=== PATIENT | male | born 1955 | race Caucasian/White ===

== ENCOUNTER 2017-01-19 12:08 | Emergency (ER) | payer MEDICARE, OTHER ==
[~2017-01-19] VITALS: Ht 180.3 cm; Wt 108.0 kg
[2017-01-19 12:30] VITALS: O2SAT 95
[2017-01-19 12:36] VITALS: BP 159/83; PULSE 63; RESP 18; TEMP 98.5; O2SAT 100
[2017-01-19] MEDS ORDERED: BLOOD PRESSURE MED PO (12:46)
[2017-01-19] MEDS ORDERED: NAPR220C22 (12:46)
[2017-01-19] MEDS ORDERED: CHOLESTEROL MED PO (12:46)
[2017-01-19] MEDS ORDERED: TIZA4TAB PO (12:46)
[2017-01-19 12:50] VITALS: BP 149/80; PULSE 87; RESP 20; TEMP 98.1; O2SAT 95
[2017-01-19] MEDS ORDERED: TRAM50TA PO (12:59)
[2017-01-19] MEDS ORDERED: ALBU.5I NEB (13:00)
[2017-01-19] MEDS ORDERED: VENTAER INH ×2 (13:00→15:02)
--- NOTE | 2017-01-19 13:08 | PD ---
HPI Chief Complaint: Chest Pain Time Seen by Provider: 12:52 Travel History International Travel<30 days: No Contact w/Intl Traveler<30days: No Traveled to known affect area: No History of Present Illness HPI 61yo M with PMH of COPD, Hep C, arthritis presents to the ED with c/o right sided chest pain this morning. States it is sharp, worst with movement and nonradiating. States he is always sob with COPD but seems to be coughing more and albuterol did not help. Denies any fever, diaphoresis, n/v, abdominal pain , focal weakness or numbness. PFSH Past Medical History Arthritis: Yes (hands and knees) Asthma: No Blood Disorders: No Anxiety: No Depression: Yes (drug rehab - 14 years ago - pt does have some depression) Cancer: No Cardiovascular Problems: No Chemotherapy: No COPD: Yes Diminished Hearing: No Endocrine: No Gastrointestinal Disorders: Yes (LT.INGUINAL HERNIA) GERD: No Glaucoma: No Genitourinary: Yes Hepatitis: Yes (hepatitis C - states undetectable at this time) Hiatal Hernia: Yes Immune Disorder: No Inguinal Hernia: Yes (LEFT) Kidney Stones: Yes Musculoskeletal: Yes Neurologic: No Psychiatric: No Reproductive: No Respiratory: Yes (COPD) Immunizations Current: No Radiation Therapy: No Sleep Apnea: No Ulcer: Yes (1999 was told he had an ulcer) Tetanus Vaccination: > 5 Years Influenza Vaccination: No Past Surgical History Abdominal Surgery: Yes (UMBILICAL HERNIA 2005, HERNIA X2 IN 04/2008 (LEFT INGUINAL)) AICD: No Appendectomy: Yes Arteriovenous Shunt: No Body Medical Devices: screws in right knee Cardiac Surgery: No Cholecystectomy: Yes Ear Surgery: No Endocrine Surgery: No Eye Surgery: No Genitourinary Surgery: No Insulin Pump: No Joint Replacement: Yes (LEFT KNEE ACLS LIGAMENTS TO KNEE) Neurologic Surgery: No Oral Surgery: No Pacemaker: No Thoracic Surgery: No Other Surgery: Yes Social History Alcohol Use: No Tobacco Use: Yes (1 ppd / pipe) Substance Use: Yes (PAST) Allergies-Medications (Allergen,Severity, Reaction): Coded Allergies: Penicillin (Verified Allergy, Severe, 01/19/17) *MDRO Multi-Drug Resistant Organism (Verified Allergy, Unknown, 01/19/17) MRSA Reported Meds & Prescriptions Reported Meds & Active Scripts Active Reported Albuterol Neb (Albuterol Sulfate) 2.5 Mg/0.5 Ml Neb 2.5 Mg NEB Q4HR NEB PRN Note: The Albuterol Sulfate Inhalation Solution is concentrated and must be diluted. Read complete instructions carefully before using. Ventolin Hfa 18 GM Inh (Albuterol Sulfate) 90 Mcg/Act Aer 2 Puff INH Q4-6H PRN Tramadol (Tramadol HCl) 50 Mg Tab 50 Mg PO DAILY PRN Review of Systems Except as stated in HPI: all other systems reviewed are Neg Physical Exam Narrative GENERAL: 61yo M in mild distress. SKIN: Focused skin assessment warm/dry. HEAD: Atraumatic. Normocephalic. EYES: Pupils equal and round. No scleral icterus. No injection or drainage. ENT: No nasal bleeding or discharge. Mucous membranes pink and moist. NECK: Trachea midline. No JVD. CARDIOVASCULAR: Regular rate and rhythm. No murmur appreciated. CHEST WALL: Mild ttp xyphoid process. RESPIRATORY: Expiratory wheezing bilaterally. GASTROINTESTINAL: Abdomen soft, non-tender, nondistended.No rebound tenderness or guarding. MUSCULOSKELETAL: No obvious deformities. No clubbing. No cyanosis. +Bilateral lower ext edema. NEUROLOGICAL: Awake and alert. No obvious cranial nerve deficits. Motor grossly within normal limits. Normal speech. PSYCHIATRIC: Appropriate mood and affect; insight and judgment normal. Data Data Last Documented VS Vital Signs Date Time Temp Pulse Resp B/P Pulse Ox O2 Delivery O2 Flow Rate FiO2 01/19/17 14:24 81 20 160/82 97 Room Air 01/19/17 13:15 21 01/19/17 12:50 98.1 Orders Complete Blood Count With Diff (01/19/17 13:02) Basic Metabolic Panel (Bmp) (01/19/17 13:02) D-Dimer (01/19/17 13:02) Act Partial Throm Time (Ptt) (01/19/17 13:02) Prothrombin Time / Inr (Pt) (01/19/17 13:02) Troponin I (01/19/17 13:02) Iv Access Insert/Monitor (01/19/17 13:02) Ecg Monitoring (01/19/17 13:02) Oximetry (01/19/17 13:02) Oxygen Administration (01/19/17 13:02) Chest, Single Ap (01/19/17 13:02) Sodium Chloride 0.9% Flush (Ns Flush) (01/19/17 13:15) Methylprednisolone So Succ Inj (Solumedr (01/19/17 13:15) Albuterol-Ipratropium Neb (Duoneb Neb) (01/19/17 13:15) B-Type Natriuretic Peptide (01/19/17 13:08) Lipase (01/19/17 12:30) Prednisone (Deltasone) (01/19/17 13:30) Ketorolac Inj (Toradol Inj) (01/19/17 13:30) Diazepam (Valium) (01/19/17 15:00) Labs Laboratory Tests Test 01/19/17 12:30 White Blood Count 8.1 TH/MM3 Red Blood Count 4.30 MIL/MM3 Hemoglobin 13.7 GM/DL Hematocrit 39.3 % Mean Corpuscular Volume 91.5 FL Mean Corpuscular Hemoglobin 32.0 PG Mean Corpuscular Hemoglobin 35.0 % Concent Red Cell Distribution Width 13.5 % Platelet Count 177 TH/MM3 Mean Platelet Volume 8.4 FL Neutrophils (%) (Auto) 78.2 % Lymphocytes (%) (Auto) 11.3 % Monocytes (%) (Auto) 7.1 % Eosinophils (%) (Auto) 1.6 % Basophils (%) (Auto) 1.8 % Neutrophils # (Auto) 6.4 TH/MM3 Lymphocytes # (Auto) 0.9 TH/MM3 Monocytes # (Auto) 0.6 TH/MM3 Eosinophils # (Auto) 0.1 TH/MM3 Basophils # (Auto) 0.1 TH/MM3 CBC Comment DIFF FINAL Differential Comment Prothrombin Time 10.2 SEC Prothromb Time International 0.9 RATIO Ratio Activated Partial 25.7 SEC Thromboplast Time D-Dimer Quantitative (PE/DVT) 0.29 MG/L FEU Sodium Level 143 MEQ/L Potassium Level 5.0 MEQ/L Chloride Level 111 MEQ/L Carbon Dioxide Level 27.9 MEQ/L Anion Gap 4 MEQ/L Blood Urea Nitrogen 19 MG/DL Creatinine 0.69 MG/DL Estimat Glomerular Filtration 117 ML/MIN Rate Random Glucose 120 MG/DL Calcium Level 8.5 MG/DL Troponin I LESS THAN 0.02 NG/ML B-Type Natriuretic Peptide 33 PG/ML Lipase 139 U/L MDM Medical Decision Making Medical Screen Exam Complete: Yes Emergency Medical Condition: Yes Interpretation(s) EKG: NSR 91bpm. Normal axis. No ST segment elevation or depression. Differential Diagnosis COPD exacerbation vs. Pneumonia vs. PE vs. musculoskeletal pain vs. costochondritis vs. atypical chest pain Narrative Course 61yo M with c/o right sided chest pain. He was pointing more to right chest but on exam is more tender in xyphoid process. Pain is sharp, worst with movement. Does not sound cardiac. Pt had been evaluated in the chest pain center last year 12/08/15 and had negative stress test for ischemia. Pt is wheezing bilaterally but saturating at 97% on RA. Pt given duonebs x3, prednisone 60mg PO. Labs reviewed, no leukocytosis. Troponin negative. BNP 33. D-dimer negative. CXR showed chronic appearing interstitial changes. No acute abnormality. Pt reevaluated at bedside after treatment and toradol and states that his breathing has improved but still with pain. Pain seems very musculoskeletal, may be from chronic coughing, will give valium. Pt is to take ibuprofen for pain at home. Instructed pt to follow up with PMD and cardiology as needed as outpatient. Diagnosis Primary Impression: COPD exacerbation Patient Instructions: General Instructions Departure Forms: Tests/Procedures Additional Instructions: Please follow up with [facility] or your primary care physician in 1- 2 days. Return to the ED if symptoms worsen. Med/Other Pt SpecificInfo: Prescription(s) given Scripts Fluticasone 12 GM Inh (Flovent Hfa 12 GM Inh)110 Mcg/Act Inh2 Puff INH BID #1 INHALER Ref 0 Prov:Cindy Guillory DO 01/19/17 Albuterol 18 GM Inh (Ventolin Hfa 18 GM Inh)90 Mcg/Act Aer2 Puff INH Q4H PRN ( SHORTNESS OF BREATH) #1 INHALER Ref 0 Prov:Cindy Guillory DO 01/19/17 Prednisone 50 Mg Tab50 Mg PO DAILY 5 Days Ref 0 Prov:Cindy Guillory DO 01/19/17 Ibuprofen 600 Mg [id number] Mg PO Q8HR PRN (PAIN) 5 Days Ref 0 Prov:Cindy Guillory DO 01/19/17 Disposition: 01 DISCHARGE HOME Condition: Stable Cindy Guillory DO Jan 19, 2017 13:08
[2017-01-19 13:13] LABS: AUTOMATED NEUTROPHIL # 6.4 TH/MM3 (1.8-7.7); BASOPHIL # 0.1 TH/MM3 (0-0.2); BASOPHIL % 1.8 % (0.0-2.0); EOSINOPHIL # 0.1 TH/MM3 (0-0.4); EOSINOPHIL % 1.6 % (0.0-4.0); HEMATOCRIT 39.3 % (39.0-51.0); HEMO FLAGS DIFF FINAL; LYMPH % 11.3 % (9.0-44.0); LYMPHOCYTE # 0.9 TH/MM3 (1.0-4.8); MEAN CELL VOLUME 91.5 FL (80.0-100.0); MONO % 7.1 % (0.0-8.0); NEUT % 78.2 % (16.0-70.0); PLATELET COUNT 177 TH/MM3 (150-450); RED CELL DISTRIBUTION WIDTH 13.5 % (11.6-17.2); WHITE BLOOD COUNT 8.1 TH/MM3 (4.0-11.0)
[2017-01-19] MEDS: methylPREDNISolone SOD SUCC 125 MG/2 ML VIAL IVP ONE ×2 (13:14→13:15)
[2017-01-19 13:15] VITALS: O2SAT 95
[2017-01-19] MEDS ORDERED: SODIUM CHLORIDE 0.9% FLUSH 10 ML FLUSH IVF PRN (13:15)
[2017-01-19] MEDS: RESP: ALBUTEROL 2.5 MG/IPRATROPIUM 0.5 MG NEB (SCH) INH ×3 (13:15→13:17)
[2017-01-19 13:23] LABS: CHLORIDE 111 MEQ/L (98-107); SODIUM (NA) 143 MEQ/L (136-145)
[2017-01-19 13:26] LABS: ANION GAP 4 MEQ/L (5-15); BICARBONATE 27.9 MEQ/L (21.0-32.0); BLOOD UREA NITROGEN 19 MG/DL (7-18)
[2017-01-19 13:29] LABS: GLOMERULAR FILTRATION RATE 117 ML/MIN (>89)
[2017-01-19] MEDS ORDERED: predniSONE 20 MG TAB PO ONE (13:30)
[2017-01-19] MEDS ORDERED: KETOROLAC TROMETHAMINE 60 MG/2 ML (IM) VIAL IM ONE (13:30)
[2017-01-19 13:32] LABS: APTT (PATIENT) 25.7 SEC (24.3-30.1); INTERNATIONAL NORMALIZED RATIO 0.9 RATIO; PROTHROMBIN TIME - PATIENT 10.2 SEC (9.8-11.6)
--- NOTE | 2017-01-19 13:52 | RADRPT ---
EXAM DATE/TIME: 01/19/2017 13:18 [facility] COMPARISON: CHEST SINGLE AP, December 07, 2015, 23:45. INDICATIONS : Chest pain. MEDICAL HISTORY : Chronic obstructive pulmonary disease. Hepatitis C. smoker SURGICAL HISTORY : None. ENCOUNTER: Initial ACUITY: 1 day PAIN SCORE: 10/10 LOCATION: Bilateral chest FINDINGS: The heart is normal in size. There is some mild chronic appearing interstitial changes. The lungs are otherwise clear. The visualized bony structures are grossly intact. Exam is similar to previous of . CONCLUSION: 1. Chronic appearing interstitial changes. No acute abnormality. Anthony Jaramillo MD on January 19, 2017 at 13:50 Board Certified Radiologist. This report was verified electronically.
[2017-01-19 14:24] VITALS: BP 160/82; PULSE 81; RESP 20; O2SAT 97
[2017-01-19] MEDS ORDERED: DIAZEPAM 5 MG TAB PO ONE (15:00)
[2017-01-19] MEDS ORDERED: IBUP-232 PO (15:02)
[2017-01-19] MEDS ORDERED: FLUTI110I INH (15:02)
[2017-01-19] MEDS ORDERED: PRED50 PO (15:02)
[2017-01-19 15:20] VITALS: BP 160/82
--- NOTE | 2017-01-21 11:15 | EKG ---
Date Performed: 01/19/2017 Time Performed: 12:16:22 PTAGE: 61 years EKG: Sinus rhythm NORMAL ECG INTERPRETATION BASED ON A DEFAULT AGE OF 41 YEARS PREVIOUS TRACING : 12/08/2015 04.08 DOCTOR: Surendra Rubi Interpretating Date/Time 01/21/2017 11:07:17
== END 2017-01-19 15:34 | disposition home or self-care (01) ==
LOC: PHED 12:08
DX: J44.1 Chronic obstructive pulmonary disease with (acute) exacerbation (principal); B19.20 Unspecified viral hepatitis C without hepatic coma; F17.290 Nicotine dependence, other tobacco product, uncomplicated; R06.02 Shortness of breath
CPT/HCPCS: 71010; 80048; 83690; 83880; 84484; 85025; 85379; 85610; 85730; 93005; 94640; 94664; 96372; 99284; J1885; J7512; J2930

== ENCOUNTER 2017-04-17 14:16 | Emergency (ER) | payer OTHER ==
[~2017-04-17] VITALS: Ht 175.3 cm; Wt 107.0 kg
[~2017-04-17 14:16] MED LIST: ALBUAER3 INH; SERO200T PO; TRAM50TA PO; VENTAER INH
[2017-04-17 14:27] VITALS: BP 153/76; PULSE 86; RESP 16; TEMP 98.8; O2SAT 96
[2017-04-17] MEDS ORDERED: IBUP400T20 PO (14:39)
--- NOTE | 2017-04-17 14:47 | PD ---
HPI Chief Complaint: Musculoskeletal Complaint Time Seen by Provider: 14:45 Travel History International Travel<30 days: No Contact w/Intl Traveler<30days: No Traveled to known affect area: No History of Present Illness HPI 61 year old male with history of osteoarthritis presents to the ED for evaluation of Right knee pain and swelling x 4 days. Pain is aching; 4/10. Pt states it is worse in the morning but seems to "loosen up" throughout the day. Reports it being tight. Has remote ACL repair. Denies injury. No fever or chills. No other symptoms to report. PFSH Past Medical History Arthritis: Yes (hands and knees) Asthma: No Blood Disorders: No Anxiety: No Depression: Yes (drug rehab - 14 years ago - pt does have some depression) Cancer: No Cardiovascular Problems: No Chemotherapy: No COPD: Yes Diminished Hearing: No Endocrine: No Gastrointestinal Disorders: Yes (LT.INGUINAL HERNIA) GERD: No Glaucoma: No Genitourinary: Yes Hepatitis: Yes (hepatitis C - states undetectable at this time) Hiatal Hernia: Yes Immune Disorder: No Inguinal Hernia: Yes (LEFT) Implanted Vascular Access Dvce: No Kidney Stones: Yes Musculoskeletal: Yes Neurologic: No Psychiatric: No Reproductive: No Respiratory: Yes (COPD) Immunizations Current: No Radiation Therapy: No Sleep Apnea: No Ulcer: Yes (1999 was told he had an ulcer) Past Surgical History Abdominal Surgery: Yes (UMBILICAL HERNIA 2005, HERNIA X2 IN 04/2008 (LEFT INGUINAL)) AICD: No Appendectomy: Yes Arteriovenous Shunt: No Body Medical Devices: screws in right knee Cardiac Surgery: No Cholecystectomy: Yes Ear Surgery: No Endocrine Surgery: No Eye Surgery: No Genitourinary Surgery: No Insulin Pump: No Joint Replacement: Yes (LEFT KNEE ACLS LIGAMENTS TO KNEE) Neurologic Surgery: No Oral Surgery: No Pacemaker: No Thoracic Surgery: No Other Surgery: Yes Social History Alcohol Use: No Tobacco Use: Yes (1 ppd / pipe) Substance Use: Yes (PAST) Allergies-Medications (Allergen,Severity, Reaction): Coded Allergies: penicillin G (Unverified Allergy, Severe, 04/17/17) *MDRO Multi-Drug Resistant Organism (Verified Allergy, Unknown, 04/17/17) MRSA Reported Meds & Prescriptions Reported Meds & Active Scripts Active Mobic (Meloxicam) 15 Mg Tab 15 Mg PO DAILY PRN Proair Hfa 8.5 GM Inh (Albuterol Sulfate) 90 Mcg/Act Aer 2 Puff INH Q4-6H PRN 108 mcg/actuation Ventolin Hfa 18 GM Inh (Albuterol Sulfate) 90 Mcg/Act Aer 2 Puff INH Q4H PRN Seroquel (Quetiapine Fumarate) 200 Mg Tab 200 Mg PO DAILY Reported Ibuprofen 400 Mg Tab 400 Mg PO AM PRN Review of Systems Except as stated in HPI: all other systems reviewed are Neg Physical Exam Narrative GENERAL: Well nourished male patient ambulatory and in no acute distress SKIN: Warm and dry. HEAD: Normocephalic. EYES: No scleral icterus. No injection or drainage. NECK: Supple, trachea midline. No JVD or lymphadenopathy. CARDIOVASCULAR: Regular rate and rhythm without murmurs, gallops, or rubs. RESPIRATORY: Breath sounds equal bilaterally. No accessory muscle use. GASTROINTESTINAL: Abdomen soft, non-tender, nondistended. MUSCULOSKELETAL: No cyanosis. Moderate anterior edema of the right knee. No erythema. No tenderness over the bony prominences. Pt can fully extend the Right knee. He can flex to 60% and reports tightness as the barrier to full flexion. Distal pulses are palpable. Lachmans test negative. No laxity with valgus or varus stress. BACK: Nontender without obvious deformity. No CVA tenderness. Data Data Last Documented VS Vital Signs Date Time Temp Pulse Resp B/P (MAP) Pulse Ox O2 Delivery O2 Flow Rate FiO2 04/17/17 14:27 98.8 86 16 153/76 (101) 96 Orders Orders Knee, Complete (4vws) (04/17/17 ) Ketorolac Inj (Toradol Inj) (04/17/17 15:00) Shiva Bandage (04/17/17 15:30) Crutches (04/17/17 ) MDM Medical Decision Making Medical Screen Exam Complete: Yes Emergency Medical Condition: Yes Medical Record Reviewed: Yes Differential Diagnosis osteoarthritis vs bursitis vs effusion vs fracture vs ligamentous injury Narrative Course 61 year old male presents to the ED for evaluation of right knee pain x 4 days. Pt appears well. There is anterior edema of the right knee, but no erythema. It is not warm to touch. Pt is able to flex and extend with some moderate limitation due to edema. Last Impressions Knee X-Ray 04/17/17 0000 Signed Impressions: Service Date/Time: Monday, April 17, 2017 14:59 - CONCLUSION: 1. Moderate tricompartmental osteoarthritis. 2. Post ACL reconstruction. 3. Large joint effusion. Anthony Jaramillo MD Discussed the findings with the patient. He is encouraged to seek orthopedic evaluation. I also advised PCP follow up and discussed possible therapeutic drainage of his effusion. He agrees to return with any worsening of symptoms Diagnosis Primary Impression: Arthritis of knee, right Additional Impression: Joint effusion of knee Qualified Codes: M25.461 - Effusion, right knee Referrals: Orthopaedic Surgeon Primary Care Physician Patient Instructions: Arthritis (GEN), General Instructions Additional Instructions: Ice and elevate to reduce pain and swelling Shiva wrap for compression Do not take ibuprofen or other NSAIDS with your prescribed pain med Seek orthopedic evaluation Outpatient MRI may be warranted for further evaluation of your knee pain Return to ED with acute worsening of symptoms Med/Other Pt SpecificInfo: Prescription(s) given Scripts Meloxicam (Mobic) 15 Mg Tab 15 MG PO DAILY Y for PAIN SCALE 1 TO 10, #14 TAB 0 Refills Prov: Rosa Roman 04/17/17 Disposition: 01 DISCHARGE HOME Condition: Stable Rosa Roman Apr 17, 2017 14:47
[2017-04-17] MEDS ORDERED: KETOROLAC TROMETHAMINE 60 MG/2 ML (IM) VIAL IM ONE (15:00)
--- NOTE | 2017-04-17 15:27 | RADRPT ---
EXAM DATE/TIME: 04/17/2017 14:59 [facility] COMPARISON: CHEST SINGLE AP, January 19, 2017, 13:18. INDICATIONS : Right knee pain. MEDICAL HISTORY : None. SURGICAL HISTORY : None. Screws, right knee. ENCOUNTER: Initial ACUITY: 4 - 6 days PAIN SCORE: 5/10 LOCATION: Right knee. FINDINGS: The patient is post ACL reconstruction. There are moderate degenerative changes evident throughout. T here is a large joint effusion. No acute fracture is seen. CONCLUSION: 1. Moderate tricompartmental osteoarthritis. 2. Post ACL reconstruction. 3. Large joint effusion. Anthony Jaramillo MD on April 17, 2017 at 15:25 Board Certified Radiologist. This report was verified electronically.
[2017-04-17] MEDS ORDERED: MOBI15TA PO (15:33)
== END 2017-04-17 15:57 | disposition home or self-care (01) ==
LOC: PHEFT 14:16
DX: M25.461 Effusion, right knee (principal); M25.561 Pain in right knee; F32.9 Major depressive disorder, single episode, unspecified; J44.9 Chronic obstructive pulmonary disease, unspecified; F17.200 Nicotine dependence, unspecified, uncomplicated
CPT/HCPCS: 73564; 96372; 99284; E0113; J1885

== ENCOUNTER → 2017-10-16 | Outpatient (CLI) | payer MEDICARE ==
[~2017-10-16] MED LIST changes: +IBUP1TAB5 PO; +LISI10TA3 PO; +PROZ40CA PO; +QUET1TAB8 PO; -SERO200T PO; -TRAM50TA PO; -VENTAER INH
--- NOTE | 2017-10-17 10:40 | RSPPFT ---
DATE OF PROCEDURE: 10/16/17 COMMENTS: Spirometry shows FVC of 2.1 at 51% of predicted, FEV1 of 0.9 at 30%, FEV1/FVC ratio is decreased. Flow is decreased at FEF 25, FEF 50, FEF 75 and FEF 25-75. There is a good response after bronchodilator treatment. Flow volume loop indicates an obstructive pattern. IMPRESSION: 1. Moderately severe obstructive lung disease. 2. Good response after bronchodilator.
== END ==
LOC: HRSP 10:25
PROVIDERS: ATTEND Family Medicine
DX: J44.1 Chronic obstructive pulmonary disease with (acute) exacerbation (principal)
CPT/HCPCS: 94060

== ENCOUNTER 2018-06-04 07:28 | Inpatient (IN) ==
--- NOTE | 2018-05-24 14:55 | MH ---
cc: Carol Krishnan MD DATE OF ADMISSION: 06/04/2018 DATE OF ADMISSION AND SURGERY: 06/04/2018 ADMITTING DIAGNOSIS: Osteoarthritic degeneration, right knee, now being admitted for right total knee arthroplasty. HISTORY OF PRESENT ILLNESS: This pleasant 63-year-old male is being admitted today for right total knee arthroplasty due to severe painful osteoarthritic degeneration, right knee. On other past history, he has had reconstructive surgery on the right knee including ACL reconstruction. He has had a left total knee as well. Current problems include his asthma and hypertension. He does use an inhaler and takes Lipitor and Lisinopril. REVIEW OF SYSTEMS: Noncontributory. FAMILY HISTORY: Noncontributory. SOCIAL HISTORY: He does smoke, 3 packs a day, but is cutting down, but he does not drink alcohol. ALLERGIES: NO KNOWN ALLERGIES. PHYSICAL EXAMINATION: GENERAL: A 63-year-old male, well-developed, well-nourished, alert and oriented x3, complaining of pain in his right knee. VITAL SIGNS: Blood pressure 132/76, pulse 102 and regular, respirations 18, temperature 97.9, pulse oximetry 96% on room air. HEENT: Eyes PERRLA, EOMI. Ears, nose, mouth clear. LUNGS: Bilateral inspiratory and expiratory wheezing. HEART: Regular rate. ABDOMEN: Soft, positive bowel sounds, nontender. EXTREMITIES: Reveals right knee to have crepitance on range of motion. Neurovascularly intact to his toes. IMPRESSION: Severe painful osteoarthritic degeneration, right knee. PLAN: Admission for right total knee arthroplasty today. He is advised to quit smoking and the plans are going to rehab after the surgical stay in the hospital. Carol Krishnan MD JRR/ct , 02:23 PM , 02:30 PM
[2018-06-04] MEDS ORDERED: Bisacodyl 10 MG Supp RECTAL PRN (08:00)
[2018-06-04] MEDS ORDERED: Post-op Orders (for Pharmacy) OTHER STA (08:00)
--- NOTE | 2018-06-04 08:07 | P.DCO ---
- Diagnosis (1) Status post total right knee replacement using cement Status: Acute (2) Osteoarthritis of right knee Status: Chronic - Physical Therapy Order: Evaluate and treat, Improve ambulation, Strength and gait training - Home Health Nursing Order: Medical education - Case Management Consult Case Management Consult-Home Health: Yes - Certification I have seen patient Randy Corona on 06/04/18. My clinical findings support the need for the requested home health care services because: Limited ability to care for self, High risk of falls I certify that my clinical findings support that this patient is homebound because: Post-op weakness, Unsteady gait/balance (2) Osteoarthritis of right knee Qualifiers: Osteoarthritis type: primary Qualified Code(s): M17.11 - Unilateral primary osteoarthritis, right knee
[2018-06-04] MEDS ORDERED: Metoprolol Tartrate 25 MG Tablet PO ONE (08:15)
[2018-06-04] MEDS ORDERED: Chlorhexidine 4% Topical 120 APPLIC/120 ML Bottle TOPICAL SCH (08:15)
[2018-06-04] MEDS ORDERED: Clindamycin 900 mg/NS Premix 900 MG/50 ML PIGGYBACK IV.SIG SCH (08:15)
[2018-06-04] MEDS ORDERED: Chlorhexidine Gluconate 2% 1 Pack (2 Cloths) TOPICAL ONE (08:15)
[2018-06-04] MEDS ORDERED: Sodium Chlor 0.9% Inj 500 ML IV.CONT ONE (08:15)
[2018-06-04] MEDS ORDERED: TRANEXAMIC ACID IV.SIG SCH (09:00)
[2018-06-04] MEDS ORDERED: Sodium Chlor 0.9% Inj 80 ML, Bupivacaine Liposo PF 1.3% Inj 20 ML, Bupivacaine PF 0.25%... P-ARTICULR ONE ×6 (09:00)
[2018-06-04] MEDS ORDERED: SODIUM CHLOR 0.9% IV.SIG SCH (09:00)
[2018-06-04] MEDS ORDERED: fentaNYL Citrate Inj 100 MCG/2 ML Ampul ONE ×2 (09:31→14:26)
[2018-06-04] MEDS ORDERED: fentaNYL Citrate Inj 100 MCG/2 ML Ampul IV.PUSH SCH (09:45)
[2018-06-04] MEDS ORDERED: Neostigmine Inj 5 MG/5 ML Syringe IV.PUSH ONE (11:15)
[2018-06-04] MEDS ORDERED: Succinylcholine Inj 100 MG/5 ML Syringe IV.PUSH ONE (11:15)
[2018-06-04] MEDS ORDERED: Glycopyrrolate Inj 1 MG/5 ML Syringe IV.PUSH ONE (11:15)
[2018-06-04] MEDS ORDERED: Phenylephrine/NS 1000 MCG/10ML Syringe IV.PUSH ONE (11:15)
[2018-06-04] MEDS ORDERED: Lidocaine PF 1% Inj 5 ML Syringe OTHER ONE (11:15)
[2018-06-04] MEDS ORDERED: Tranexamic Acid Inj 1,000 MG in Sodium Chlor 0.9% Inj 100 ML IV.SIG SCH (12:00)
--- NOTE | 2018-06-04 14:15 | P.BOP ---
- Preoperative Diagnosis (1) Osteoarthritis of right knee - Postoperative Diagnosis (1) Status post total right knee replacement using cement Date of procedure: 06/04/18 Procedure: Right Total Knee Arthroplasty Implants: see implant record Anesthesia: GETA Surgeon: Dale Krishnan MD Health Safety Engineer: Lorena Riley Estimated blood loss (mL): 100 Tourniquet time (min): 50 (300 mmHg) Urine output (mL): 0 (no quigley) Pathology: none sent Condition: stable Disposition: PACU
[2018-06-04] MEDS ORDERED: *morphine SULFATE 10 MG/ML PERIprocedure ONLY ONE (14:22)
--- NOTE | 2018-06-04 14:42 | MP ---
cc: Carol Krishnan MD DATE OF OPERATION: 06/04/2018 PREOPERATIVE DIAGNOSIS: Severe osteoarthritic degeneration, right knee, status post anterior cruciate ligament reconstruction 30 years ago. SURGERY PERFORMED: Right total knee arthroplasty with removal of 2 screws in the proximal tibia using Consensus components, size 6 femur, 4 tibia, 10 standard insert and size 2 patella with 2 batches of antibiotic-impregnated cement. SURGEON: Carol Krishnan MD ESCALATOR CONSTRUCTOR: Lorena Riley APRN ANESTHESIA: General intubation and block. PROCEDURE: After successful induction of anesthesia, the patient is placed on the operating room table in the supine position. The knee is prepped and draped in the usual manner. A tourniquet is inflated at the upper thigh and set to 300 mmHg pressure after exsanguination of the lower extremity. A longitudinal incision is made extending from 3 inches proximal to the superior pole of the patella, across the patella in longitudinal fashion, and down past the insertion of the tibial tubercle into the proximal tibia. The incision is carried down through subcutaneous tissue along the medial aspect of the patella and retinaculum, down through the capsule to expose the knee joint. The patella and patellar tendon are freed up enough to allow the patella to be inverted and retracted off the lateral side of the knee joint. The knee joint is left exposed. Small osteophytes are removed. All soft tissue is removed to allow proper position of the femoral and tibial cutting jig guide. The first femoral jig is then inserted along the distal end of the femur after first measuring to decide whether this is a small, medium, or large component. The notch is then drilled and the tibial cutting guide inserted into the femoral cutting guide, along with the ankle brace to allow for proper measurement of the tibial cutting surface that needed to be resected. Pins are inserted into the tibial cutting jig and femoral cutting jig to hold them in place. An oscillating saw is then used to resect the surface of the tibia. The surface of the tibia is then completely removed using sharp and blunt dissection. The anterior and posterior cuts of the femur are then made as well using an oscillating saw through the cutting guide. All guides are then removed and the varus/valgus angulation cutting guide applied to the femur for proper measurement of the proper amount of valgus. The anterior cutting guide for the femur is then inserted at the anterior femoral cuts made. Next, the first block trial is inserted into the femur to allow for proper condyle drill holes to be made which are then made followed by removal of the bone between the condyles using an oscillating saw as well as the bone removed at the most posterior surface of the condyle. After this, this guide is removed and the chamfer cuts made using the chamfer cutting guide from both anterior and posterior. Next, the femoral trial is then inserted, the tibial surface reflected anterior to expose the tibial surface and a tibial stem guide is inserted after first measuring for a standard, standard plus, large, or large plus surface to be used. After the stem is impacted the trial tibial surface is applied followed by the trial meniscal components. After full range of motion is found with the appropriate length meniscal components varying the patella is prepared by resecting the posterior aspect of the patella using an oscillating saw, inserting a trial. The trial is then removed and the cruciate cutting guide applied using the bur to cut the cruciate cuts. After cruciate cuts are made all trials are removed. The wound is irrigated copiously with antibiotic solution and Water Pik and the actual components inserted into place using the aforementioned components. After the cement has hardened and the components are found to have full range of motion with no instability, the tourniquet is deflated, total tourniquet time being 50 minutes at 300 mmHg pressure. The wound again is irrigated copiously with antibiotic solution, meticulous hemostasis achieved. Two Autovac tubes inserted, followed by closure of the deep fascia with both running and interrupted #1 Vicryl suture, subcutaneous tissue approximated using interrupted 2-0 Vicryl sutures, and skin approximated with chepe. Wet and dry dressing is applied to the wound followed by Xeroform gauze, sterile dressing and knee immobilizer. The patient tolerated the procedure well and left the Operating Room in satisfactory condition. ESTIMATED BLOOD LOSS: 100 mL. COUNTS: Sponge and suture counts were correct. COMPONENTS: The components used were Consensus components, size 6 femur, 4 tibia, 10 standard insert and size 2 patella with 2 batches of antibiotic-impregnated cement. Prior to making the cuts, 2 screws were removed from the proximal tibia by dissecting around them and removing the screws and washers manually with a Mena head screwdriver. Next, the total knee was done. Meticulous hemostasis achieved and 120 mL of mixture of Exparel, normal saline, 0.25% Marcaine plain was injected around the knee joint for extra pain control. Deep fascia approximated with running #2 Quill. Subcutaneous tissue approximated using interrupted running 2-0 and 3-0 Monocryl suture and Prineo dressing and knee immobilizer. No drain utilized. Sponge and suture counts correct. The patient tolerated the procedure well and left the operating room in stable condition. Lorena Riley APRN, was present during the entire procedure to include patient positioning as well as the procedure itself. The medical necessity of a nurse practitioner dental front office assistant in this case was indicated in this case by the complexity of the case itself. Throughout the case, the surgical technologist was working the back table while my surgical services tech RYLEE was directly assisting me. J. MD RILEY Nichole/es , 01:43 PM , 01:51 PM
--- NOTE | 2018-06-04 14:53 | XR ---
EXAM DATE: 06/04/2018 2:51 PM EST AGE/SEX: 63 years / Male INDICATIONS: Post-op right knee. CLINICAL DATA: This is the patient's initial encounter. Patient reports that signs and symptoms have been present for 1 day and indicates a pain score of Nonresponsive. MEDICAL/SURGICAL HISTORY: None. None. COMPARISON: POI, XR KNEE COMPLETE, RIGHT, 10/05/2017. . FINDINGS: The patient is post right knee arthroplasty. Orthopedic hardware is in excellent position. There is n o evidence of complication. CONCLUSION: Orthopedic hardware in excellent position. Electronically signed by: Anthony Jaramillo MD 06/04/2018 2:52 PM EST
[2018-06-04] MEDS ORDERED: Bupivacaine PF 0.5% Inj 30 ML Vial ONE (15:55)
--- NOTE | 2018-06-04 17:26 | P.CONIM ---
History of Present Illness Service: [facility] Consult date: 06/04/18 Reason for Consult: medical management Primary Care Provider: Khang Manning MD Chief Complaint: right knee pain History of Present Illness: This is a 63-year-old male with past medical history of osteoarthritis , hypertension, COPD, asthma COPD, hyperlipidemia who was admitted for right total knee arthroplasty with Dr. Krishnan for osteoarthritic degeneration of the right knee. Patient had a past history of reconstructive surgery on the right knee including ACL reconstruction and left knee surgery. Medicine team was consulted for medical management. Patient seen and examined laying in bed, slightly sleepy however answers to questions appropriately. And drifting back to sleep. Patient complains of right knee pain at 6 out of 10 scale. Stated did not get any pain medication nurse reported that patient just had a nerve block. Patient complains of wheezing with known history of smoking 3 packs/day. Patient stated he went back smoking due to the passing of his . Patient stated he is using an inhaler at home and he brought it with him. Patient denies any use of oxygen at home. Patient denies any drinking alcohol. Patient denies any headache or dizziness, chest pain, abdominal pain, nausea, vomiting, diarrhea or constipation. Patient denies any fever or chills. Review of Systems All other systems reviewed negative except as stated in HPI PMFSH - History History Provided By: Patient - Medical History Medical History: Medical History (Last Reviewed 06/04/18 @ 17:12 by DIANA Guerra) Arthritis COPD (chronic obstructive pulmonary disease) Depression History of drug abuse in remission Hx of hepatitis C Hx of tear of ACL (anterior cruciate ligament) MRSA (methicillin resistant Staphylococcus aureus) infection PVD (peripheral vascular disease) Tooth missing Wears glasses - Surgical History Surgical History: Surgical History (Last Reviewed 06/04/18 @ 17:12 by DIANA Guerra) History of total left knee replacement History of umbilical hernia repair Hx of left inguinal hernia repair Hx of vein stripping - Family History Family History: Family History (Last Updated 06/04/18 @ 17:13 by DIANA Guerra) Sister No problems noted. Sister Family history of breast cancer Father Family history of cancer - Social History I have reviewed the patient's Social History: Yes - Tobacco History Second Hand Smoke Exposure: No Tobacco Use In Past 30 Days: Yes Smoking Status: Current every day smoker Tobacco Type: Cigarettes, Cigars - Alcohol History How Often Do You Have a Drink Containing Alcohol: Never - Substance Use History Substance History: Past History - Substance Use Type Marijuana Type: HEROIN, PILLS, EVERYTHING EXCEPT CRACK; CLEAN 28 YEARS NOW - Travel History Recent Travel in the [place] Within the Last 8 Weeks: No Recent Travel Out of the Country Within the Last 8 Weeks: No Medications and Allergies Active Medications: Active Medications Hydrocodone Bitart/Acetaminophen ([place] 7.5/325) 1 tab PO Q4H PRN PRN Reason: PAIN LESS THAN 5 ON SCALE Hydrocodone Bitart/Acetaminophen ([place] 7.5/325) 2 tab PO Q6H PRN PRN Reason: PAIN SCALE 5 TO 10 Al Hydroxide/Mg Hydroxide (Milk Of Magnesia Liq) 30 ml PO BID PRN PRN Reason: Mild Constipation Albuterol (Ventolin Hfa Inh) 2 puff INH Q4HR NEB PRN PRN Reason: Shortness Of Breath Albuterol (Duoneb Neb (Josseline)) 1 ampul NEB ONCE JOSSELINE Stop: 06/04/18 23:59 Last Admin: 06/04/18 09:59 Dose: 1 ampul Apixaban (Eliquis) 2.5 mg PO BID JOSSELINE Bisacodyl (Dulcolax Supp) 10 mg RECTAL DAILY PRN PRN Reason: SEVERE CONSITIPATION Chlorhexidine Gluconate (Hibiclens 4% Topical) 1 applicatio TOPICAL ONCE JOSSELINE Stop: 06/08/18 08:14 Last Admin: 06/04/18 08:20 Dose: 1 applicatio Fentanyl Citrate (Fentanyl Inj) 75 mcg IV.PUSH ONCE JOSSELINE Stop: 06/04/18 23:59 Last Admin: 06/04/18 09:55 Dose: 75 mcg Lactated Ringer's (Lr 1000 Ml Inj) 1,000 mls @ 80 mls/hr IV.CONT .[id number] JOSSELINE Last Admin: 06/04/18 14:38 Dose: 80 mls/hr Lactated Ringer's (Lr 1000 Ml Inj) 1,000 mls @ 30 mls/hr IV.CONT .Q24H ONE Stop: 06/05/18 08:14 Last Admin: 06/04/18 08:30 Dose: 30 mls/hr Sodium Chloride (Ns Inj) 500 mls @ 30 mls/hr IV.CONT .[id number] ONE Stop: 06/05/18 00:54 Last Admin: 06/04/18 08:48 Dose: Not Given Clindamycin/Sodium Chloride (Cleocin 900 Mg/Ns Premix) 900 mg in 50 mls @ 100 mls/hr IV.SIG [facility] Stop: 06/08/18 08:14 Last Infusion: 06/04/18 11:40 Dose: 10 mls/hr Clindamycin/Sodium Chloride (Cleocin 900 Mg/Ns Premix) 900 mg in 50 mls @ 100 mls/hr IV.SIG Q8H [facility] Stop: 06/05/18 12:29 Lactulose (Lactulose Liq) 30 ml PO DAILY PRN PRN Reason: SEVERE CONSITIPATION Lisinopril (Prinivil) 10 mg PO DAILY [facility] Midazolam HCl (Versed Inj) 2 mg IV.PUSH ONCE [facility] Stop: 06/04/18 23:59 Last Admin: 06/04/18 09:45 Dose: 2 mg Miscellaneous Information ([facility] Information) 0 each OTHER UNSCH PRN PRN Reason: SEE LABEL COMMENTS Stop: 06/05/18 14:12 Morphine Sulfate (Morphine Inj) 2 mg IV.PUSH Q3H PRN PRN Reason: BREAKTHROUGH PAIN Multivitamins/Minerals (Theragran-M) 1 tab PO BID [facility] Stop: 08/03/18 08:59 Ondansetron HCl (Zofran Odt) 4 mg PO Q6H PRN PRN Reason: NAUSEA OR VOMITING Senna/Docusate Sodium (Cassandra-Colace) 1 tab PO BID [facility] Sennosides (Senokot) 17.2 mg PO BID PRN PRN Reason: Moderate Constipation Sodium Chloride (Ns Flush) 2 ml IV.FLUSH BID [facility] Sodium Chloride (Ns Flush) 2 ml IV.FLUSH PRN PRN PRN Reason: FLUSH AFTER USING IV ACCESS Allergies Allergy/AdvReac Type Severity Reaction Status Date / Time penicillin G Allergy Severe Anaphylaxis Verified 06/04/18 08:43 Home Medications Medication Instructions Recorded Confirmed Type albuterol sulfate 2 puff INHALATION Q4-6H PRN 05/24/18 06/04/18 History ibuprofen 400 mg PO DAILY PRN 05/24/18 06/04/18 History lisinopril 10 mg PO DAILY 05/24/18 06/04/18 History Exam Vital signs: Vital Signs 06/04/18 08:05 06/04/18 09:01 06/04/18 10:02 Temperature 98.4 F Pulse Rate 77 75 74 Respiratory Rate 20 20 Blood Pressure 173/93 H Pulse Oximetry 96 96 06/04/18 14:13 06/04/18 14:15 06/04/18 14:30 Temperature 97.6 F Pulse Rate 101 H 90 83 Respiratory Rate 25 H 20 21 Blood Pressure 175/93 H 184/85 H 166/80 H Pulse Oximetry 93 L 92 L 92 L 06/04/18 14:50 Temperature Pulse Rate Respiratory Rate 19 Blood Pressure Pulse Oximetry Intake & Output 06/03/18 06/04/18 06/04/18 18:59 06:59 18:59 Intake Total 1511.17 / 1511.17 Output Total 100 / 100 Balance 1411.17 / 1411.17 Weight 111.7 kg Intake: IV 111.17 / 111.17 Cyklokapron Inj 1,117 MG In NS 111.17 / 111.17 Inj 100 ML @ 200 mls/hr IV.SIG ONCE JOSSELINE Rx#:[id number] Anesthesia Amount 1400 / 1400 Output: Estimated Blood Loss 100 / 100 Other: Weight On Admission 111.7 kg Narrative: GENERAL: Well-developed, well-nourished, male laying in bed in no apparent distress SKIN: Warm and dry. HEAD: Atraumatic. Normocephalic. EYES: Pupils equal and round. No scleral icterus. No injection or drainage. ENT: No nasal bleeding or discharge. Mucous membranes pink and moist. NECK: Trachea midline. No JVD. CARDIOVASCULAR: Regular rate and rhythm. RESPIRATORY: No accessory muscle use. Expiratory wheezes on right lung area on auscultation. On 2 L nasal cannula, O2 sat >90 GASTROINTESTINAL: Abdomen obese soft, non-tender, nondistended. Hepatic and splenic margins not palpable. MUSCULOSKELETAL: Extremities without clubbing, cyanosis, or edema. Right knee wrapped with Shiva wrap, with cooling system, sensation intact NEUROLOGICAL: Awake but sleepy, alert and oriented x3. No obvious cranial nerve deficits. Motor grossly within normal limits. Generalized weakness moving all 4 extremities except right lower leg with limited range of motion. Normal speech. PSYCHIATRIC: Appropriate mood and affect; insight and judgment normal. Results - Labs Labs: Laboratory Results - last 24 hr 11/26/18 08:23 Blood Type AB Positive Blood Type Recheck Required Antibody Screen Negative - Imaging Impressions Knee X-Ray 06/04/18 08:00 CONCLUSION: Orthopedic hardware in excellent position. Assessment and Plan - Assessment (1) COPD (chronic obstructive pulmonary disease) Code(s): J44.9 - Chronic obstructive pulmonary disease, unspecified Status: Acute (2) Asthma Code(s): J45.909 - Unspecified asthma, uncomplicated Status: Acute (3) Hypertension Code(s): I10 - Essential (primary) hypertension Status: Acute (4) Hyperlipidemia Code(s): E78.5 - Hyperlipidemia, unspecified Status: Acute (5) Status post total right knee replacement using cement Code(s): Z96.651 - Presence of right artificial knee joint Status: Acute (6) Osteoarthritis of right knee Code(s): M17.11 - Unilateral primary osteoarthritis, right knee Status: Chronic - Plan This is a 63-year-old male with past medical history of osteoarthritis , hypertension, COPD, asthma COPD, hyperlipidemia who was admitted for right total knee arthroplasty with Dr. Krishnan for osteoarthritic degeneration of the right knee. Osteoarthritis Osteoarthritic degeneration of the right knee Status post right knee arthroplasty today 06/04/[address] Krishnan History of ACL reconstruction and total left knee -Postop care for right knee arthroplasty -Pain pain management with as needed pain medication and bowel regimen -OrthO following -Continue Eliquis for DVT prophylaxis -Physical therapy/rehab per protocol COPD Asthma Tobacco dependence -Expiratory wheezes -Add DuoNeb scheduled and as needed -As needed O2 weaned down to keep sat greater than 90% -Counseling on tobacco cessation -Continue home inhalers -Monitor respiratory status Hypertension, history of Hyperlipidemia, history of -Blood pressure controlled -Continue home dose lisinopril and Lipitor -Monitor blood pressure DVT prophylaxis: Continue on Eliquis Code Status: Full code Discussed Condition With: Patient and nurse Dr. Penaloza Discharge Planning: Plan for nursing rehab after to surgical stay OrthO recommendation (6) Osteoarthritis of right knee Qualifiers: Osteoarthritis type: primary Qualified Code(s): M17.11 - Unilateral primary osteoarthritis, right knee
[2018-06-04] MEDS: Morphine Inj 4 MG/ML Vial IV.PUSH PRN (20:37)
[2018-06-04] MEDS: Multivitamin/Minerals Therapeutic Tablet PO SCH (20:39)
[2018-06-04] MEDS: Senna/Docusate Sodium 8.6/50 MG Tablet PO SCH (20:39)
[2018-06-04] MEDS: Clindamycin 900 mg/NS Premix 900 MG/50 ML PIGGYBACK IV.SIG SCH (21:20)
[2018-06-05] MEDS: Morphine Inj 4 MG/ML Vial IV.PUSH PRN ×5 (01:15→23:52)
[2018-06-05] MEDS: Clindamycin 900 mg/NS Premix 900 MG/50 ML PIGGYBACK IV.SIG SCH ×2 (04:10→12:12)
[2018-06-05 05:09] LABS: Baso % (Auto) 0.3 % (0.0-2.0); Hematocrit 37.8 % (39.0-51.0); Hemoglobin 12.8 gm/dL (13.0-17.0); Lymph # (Auto) 0.9 th/mm3 (1.0-4.8); Lymph % (Auto) 6.3 % (9.0-44.0); Mean Corpuscular Hemoglobin 32.1 pg (27.0-34.0); Mean Corpuscular Volume 94.7 fL (80.0-100.0); Mean Platelet Volume 8.4 fL (7.0-11.0); Mono # (Auto) 1.1 th/mm3 (0.0-0.9); Mono % (Auto) 7.9 % (0.0-8.0); Neut # (Auto) 11.9 th/mm3 (1.8-7.7); Neut % (Auto) 85.5 % (16.0-70.0); Platelet Count 139 th/mm3 (150-450); Red Cell Distribution Width 13.7 % (11.6-17.2); White Blood Count 13.9 th/mm3 (4.0-11.0)
[2018-06-05 05:17] LABS: Anion Gap 5 meq/L (5-15); Blood Urea Nitrogen 19 mg/dL (7-18); Carbon Dioxide 31.5 meq/L (21.0-32.0); Chloride 103 meq/L (98-107); Glomerular Filtration Rate Greater Than 89 mL/min (>89); Glucose,Random 136 mg/dL (74-106); Potassium 4.6 meq/L (3.5-5.1); Sodium 139 meq/L (136-145)
[2018-06-05] MEDS: Lisinopril 10 MG Tablet PO SCH (08:48)
[2018-06-05] MEDS: Multivitamin/Minerals Therapeutic Tablet PO SCH ×2 (08:48→20:04)
[2018-06-05] MEDS: Senna/Docusate Sodium 8.6/50 MG Tablet PO SCH ×2 (08:48→23:56)
--- NOTE | 2018-06-05 09:02 | XR ---
EXAM DATE: 06/05/2018 8:59 AM EST AGE/SEX: 63 years / Male INDICATIONS: Short of breath. CLINICAL DATA: This is the patient's initial encounter. Patient reports that signs and symptoms have been present for 1 day and indicates a pain score of 0/10. MEDICAL/SURGICAL HISTORY: . Chronic obstructive pulmonary disease. Hepatitis C. Smoker None. COMPARISON: POI, XR CHEST PA AND LAT, 05/29/2018. . FINDINGS: The heart is normal in size. There are chronic interstitial changes within the pulmonary parenchyma. These are similar to the previous examination. The visualized bony structures are grossly intact. CONCLUSION: No acute cardiopulmonary findings. Stable compared to prior. Electronically signed by: Anthony Jaramillo MD 06/05/2018 9:01 AM EST
--- NOTE | 2018-06-05 10:58 | P.PNOP ---
Subjective Interval history: Pt painful in knee today. Physical Exam Vital signs: Vital Signs 06/04/18 14:13 06/04/18 14:15 06/04/18 14:30 Temperature 97.6 F Pulse Rate 101 H 90 83 Respiratory Rate 25 H 20 21 Blood Pressure 175/93 H 184/85 H 166/80 H Pulse Oximetry 93 L 92 L 92 L 06/04/18 14:45 06/04/18 14:50 06/04/18 15:00 Temperature Pulse Rate 81 86 Respiratory Rate 20 19 22 Blood Pressure 141/66 H 133/56 L Pulse Oximetry 97 95 06/04/18 15:15 06/04/18 15:30 06/04/18 15:45 Temperature Pulse Rate 81 85 80 Respiratory Rate 21 14 17 Blood Pressure 121/61 117/60 128/68 Pulse Oximetry 89 L 91 L 93 L 06/04/18 16:00 06/04/18 16:15 06/04/18 16:30 Temperature Pulse Rate 81 78 81 Respiratory Rate 17 19 19 Blood Pressure 123/67 121/66 109/55 L Pulse Oximetry 89 L 93 L 94 L 06/04/18 17:00 06/04/18 17:42 06/04/18 18:00 Temperature 97.6 F Pulse Rate 78 79 Respiratory Rate 20 13 16 Blood Pressure 147/73 H 135/74 Pulse Oximetry 93 L 94 L 06/04/18 20:00 06/04/18 20:32 06/05/18 00:00 Temperature 98.1 F 98.3 F Pulse Rate 81 76 81 Respiratory Rate 20 17 18 Blood Pressure 156/71 H 106/56 L Pulse Oximetry 95 91 L 92 L 06/05/18 03:50 06/05/18 04:00 06/05/18 08:00 Temperature 97.7 F 98.1 F Pulse Rate 69 84 76 Respiratory Rate 16 20 16 Blood Pressure 134/63 141/69 H Pulse Oximetry 95 95 06/05/18 08:39 Temperature Pulse Rate 81 Respiratory Rate 18 Blood Pressure Pulse Oximetry 94 L Intake & Output 06/04/18 06/05/18 06/05/18 18:59 06:59 18:59 Intake Total 1511.17 / 1511.17 1770 / 1770 Output Total 100 / 100 1050 / 1050 Balance 1411.17 / 1411.17 720 / 720 Weight 111.7 kg 126.8 kg Intake: IV 111.17 / 111.17 1050 / 1050 LR 1000 mL Inj 1,000 ML @ 80 1000 / 1000 mls/hr IV.CONT .[id number] [facility] Rx# :[id number] Cleocin 900 mg/NS Premix 900 mg 50 / 50 In 50 ml @ 100 mls/hr IV.SIG Q8H [facility] Rx#:[id number] Cyklokapron Inj 1,117 MG In NS 111.17 / 111.17 Inj 100 ML @ 200 mls/hr IV.SIG ONCE [facility] Rx#:[id number] Oral 720 / 720 Anesthesia Amount 1400 / 1400 Output: Urine 1050 / 1050 Estimated Blood Loss 100 / 100 Other: Date of Last Bowel Movement 06/04/18 Weight On Admission 111.7 kg - Constitutional no acute distress Results - Labs CBC & Chem 7: 06/05/18 04:39 06/05/18 04:39 Laboratory Results - last 24 hr 06/05/18 06/05/18 04:39 04:39 WBC 13.9 H RBC 4.00 L Hgb 12.8 L Hct 37.8 L MCV 94.7 MCH 32.1 MCHC 34.0 RDW 13.7 Plt Count 139 L MPV 8.4 Neut % (Auto) 85.5 H Lymph % (Auto) 6.3 L [place] % (Auto) 7.9 Eos % (Auto) 0.0 Baso % (Auto) 0.3 Neut # (Auto) 11.9 H Lymph # (Auto) 0.9 L [place] # (Auto) 1.1 H Eos # (Auto) 0.0 Baso # (Auto) 0.0 WBC Differential . Differential Comment Auto diff final Sodium 139 Potassium 4.6 Chloride 103 Carbon Dioxide 31.5 Anion Gap 5 BUN 19 H Creatinine 0.82 Estimated GFR Greater than 89 Random Glucose 136 H Calcium 8.0 L - Imaging Impressions Knee X-Ray 06/04/18 08:00 CONCLUSION: Orthopedic hardware in excellent position. Chest X-Ray 06/05/18 00:00 CONCLUSION: No acute cardiopulmonary findings. Stable compared to prior. Assessment and Plan - Problem List (1) Status post total right knee replacement using cement Code(s): Z96.651 - Presence of right artificial knee joint Status: Acute (2) Osteoarthritis of right knee Code(s): M17.11 - Unilateral primary osteoarthritis, right knee Status: Chronic Qualifiers: Osteoarthritis type: primary Qualified Code(s): M17.11 - Unilateral primary osteoarthritis, right knee - Attending Attestation Attending Attestation: Pt in bed at present time. Dressing dry and intact. NV intact to toes. No calf tenderness. Plan to cont PT.Will need to be able to manage 30 stairs at home before being able to be released to home. Needs social service eval.
--- NOTE | 2018-06-05 14:48 | P.PNIM ---
Subjective Interval history: Follow up osteoarthritis, hypertension, COPD, asthma COPD, hyperlipidemia. Patient seen and examined lying in bed, c/o of right leg/knee pain, stated due to have pain medication and already informed the nurse. Patient stated wanted to go home and does not want to go to rehab, due to have dependent child at home. Patient denies any SOB, stated breathing better this time after his inhaler. Patient denies any headache or dizziness, denies any chest pain, abdominal pain , nausea or vomiting, however C/o of constipation, did not have any BM since Monday. Discusseed will give stool softener. Nurse denies any acute issues overnight. Physical Exam Vital signs: Vital Signs 06/04/18 14:50 06/04/18 15:00 06/04/18 15:15 Temperature Pulse Rate 86 81 Respiratory Rate 19 22 21 Blood Pressure 133/56 L 121/61 Pulse Oximetry 95 89 L 06/04/18 15:30 06/04/18 15:45 06/04/18 16:00 Temperature Pulse Rate 85 80 81 Respiratory Rate 14 17 17 Blood Pressure 117/60 128/68 123/67 Pulse Oximetry 91 L 93 L 89 L 06/04/18 16:15 06/04/18 16:30 06/04/18 17:00 Temperature Pulse Rate 78 81 78 Respiratory Rate 19 19 20 Blood Pressure 121/66 109/55 L 147/73 H Pulse Oximetry 93 L 94 L 93 L 06/04/18 17:42 06/04/18 18:00 06/04/18 20:00 Temperature 97.6 F 98.1 F Pulse Rate 79 81 Respiratory Rate 13 16 20 Blood Pressure 135/74 156/71 H Pulse Oximetry 94 L 95 06/04/18 20:32 06/05/18 00:00 06/05/18 03:50 Temperature 98.3 F Pulse Rate 76 81 69 Respiratory Rate 17 18 16 Blood Pressure 106/56 L Pulse Oximetry 91 L 92 L 06/05/18 04:00 06/05/18 08:00 06/05/18 08:39 Temperature 97.7 F 98.1 F Pulse Rate 84 76 81 Respiratory Rate 20 16 18 Blood Pressure 134/63 141/69 H Pulse Oximetry 95 95 94 L 06/05/18 12:00 Temperature 97.5 F L Pulse Rate 95 H Respiratory Rate 18 Blood Pressure 132/60 Pulse Oximetry 92 L Intake & Output 06/04/18 06/05/18 06/05/18 18:59 06:59 18:59 Intake Total 1511.17 / 1511.17 1820 / 1820 Output Total 100 / 100 1050 / 1050 Balance 1411.17 / 1411.17 770 / 770 Weight 111.7 kg 126.8 kg Intake: IV 111.17 / 111.17 1100 / 1100 LR 1000 mL Inj 1,000 ML @ 80 1000 / 1000 mls/hr IV.CONT .[id number] [facility] Rx# :[id number] Cleocin 900 mg/NS Premix 900 mg 100 / 100 In 50 ml @ 100 mls/hr IV.SIG Q8H [facility] Rx#:[id number] Cyklokapron Inj 1,117 MG In NS 111.17 / 111.17 Inj 100 ML @ 200 mls/hr IV.SIG ONCE [facility] Rx#:[id number] Oral 720 / 720 Anesthesia Amount 1400 / 1400 Output: Urine 1050 / 1050 Estimated Blood Loss 100 / 100 Other: Date of Last Bowel Movement 06/04/18 Weight On Admission 111.7 kg Narrative: GENERAL: Well-developed, well-nourished, male laying in bed in no apparent distress SKIN: Warm and dry. HEAD: Atraumatic. Normocephalic. EYES: Pupils equal and round. No scleral icterus. No injection or drainage. ENT: No nasal bleeding or discharge. Mucous membranes pink and moist. NECK: Trachea midline. No JVD. CARDIOVASCULAR: Regular rate and rhythm. RESPIRATORY: No accessory muscle use. Expiratory wheezes on right lung area on auscultation. On 2 L nasal cannula, O2 sat >90 GASTROINTESTINAL: Abdomen obese soft, non-tender, nondistended. Hepatic and splenic margins not palpable. MUSCULOSKELETAL: Extremities without clubbing, cyanosis, or edema. Right knee wrapped with Shiva wrap, with cooling system, sensation intact NEUROLOGICAL: Awake but sleepy, alert and oriented x3. No obvious cranial nerve deficits. Motor grossly within normal limits. Generalized weakness moving all 4 extremities except right lower leg with limited range of motion. Normal speech. PSYCHIATRIC: Appropriate mood and affect; insight and judgment normal. Results - Labs CBC & Chem 7: 06/05/18 04:39 06/05/18 04:39 Laboratory Results - last 24 hr 06/05/18 06/05/18 04:39 04:39 WBC 13.9 H RBC 4.00 L Hgb 12.8 L Hct 37.8 L MCV 94.7 MCH 32.1 MCHC 34.0 RDW 13.7 Plt Count 139 L MPV 8.4 Neut % (Auto) 85.5 H Lymph % (Auto) 6.3 L [place] % (Auto) 7.9 Eos % (Auto) 0.0 Baso % (Auto) 0.3 Neut # (Auto) 11.9 H Lymph # (Auto) 0.9 L [place] # (Auto) 1.1 H Eos # (Auto) 0.0 Baso # (Auto) 0.0 WBC Differential . Differential Comment Auto diff final Sodium 139 Potassium 4.6 Chloride 103 Carbon Dioxide 31.5 Anion Gap 5 BUN 19 H Creatinine 0.82 Estimated GFR Greater than 89 Random Glucose 136 H Calcium 8.0 L - Imaging Impressions Knee X-Ray 06/04/18 08:00 CONCLUSION: Orthopedic hardware in excellent position. Chest X-Ray 06/05/18 00:00 CONCLUSION: No acute cardiopulmonary findings. Stable compared to prior. Assessment and Plan - Assessment (1) COPD (chronic obstructive pulmonary disease) Code(s): J44.9 - Chronic obstructive pulmonary disease, unspecified Status: Acute (2) Asthma Code(s): J45.909 - Unspecified asthma, uncomplicated Status: Acute (3) Hypertension Code(s): I10 - Essential (primary) hypertension Status: Acute (4) Hyperlipidemia Code(s): E78.5 - Hyperlipidemia, unspecified Status: Acute (5) Status post total right knee replacement using cement Code(s): Z96.651 - Presence of right artificial knee joint Status: Acute (6) Osteoarthritis of right knee Code(s): M17.11 - Unilateral primary osteoarthritis, right knee Status: Chronic - Plan This is a 63-year-old male with past medical history of osteoarthritis , hypertension, COPD, asthma COPD, hyperlipidemia who was admitted for right total knee arthroplasty with Dr. Krishnan for osteoarthritic degeneration of the right knee. Osteoarthritis Osteoarthritic degeneration of the right knee Status post right knee arthroplasty today 06/04/[address] Krishnan History of ACL reconstruction and total left knee -Postop care for right knee arthroplasty -Pain pain management with as needed pain medication and bowel regimen -OrthO following -Continue Eliquis for DVT prophylaxis -Physical therapy/rehab per protocol slight Leukocytosis likely related to post op knee arthroplasty -CXray negative -no fever or chills -monitor CBC, recheck in am COPD Asthma Tobacco dependence -Expiratory wheezes -Add DuoNeb scheduled and as needed -As needed O2 weaned down to keep sat greater than 90% -Counseling on tobacco cessation -Continue home inhalers -Monitor respiratory status Hypertension, history of Hyperlipidemia, history of -Blood pressure controlled -Continue home dose lisinopril and Lipitor -Monitor blood pressure DVT prophylaxis: Continue on Eliquis Code Status: full code Discussed Condition With: patient and nurse Discharge Planning: Patient refused nursing rehab at this time due to dependent child at home (6) Osteoarthritis of right knee Qualifiers: Osteoarthritis type: primary Qualified Code(s): M17.11 - Unilateral primary osteoarthritis, right knee
[2018-06-06 07:08] LABS: Baso % (Auto) 0.3 % (0.0-2.0); Eos % (Auto) 0.4 % (0.0-4.0); Mean Corpuscular HGB Conc 34.2 % (32.0-36.0); Mean Corpuscular Hemoglobin 32.4 pg (27.0-34.0); Mean Platelet Volume 9.1 fL (7.0-11.0); Mono % (Auto) 8.5 % (0.0-8.0); Neut % (Auto) 82.8 % (16.0-70.0); Platelet Count 110 th/mm3 (150-450); Red Blood Count 3.69 mil/mm3 (4.50-5.90); Red Cell Distribution Width 13.9 % (11.6-17.2)
[2018-06-06] MEDS: Lisinopril 10 MG Tablet PO SCH ×2 (08:32→09:15)
[2018-06-06] MEDS: Senna/Docusate Sodium 8.6/50 MG Tablet PO SCH ×2 (08:32→21:30)
[2018-06-06] MEDS: Multivitamin/Minerals Therapeutic Tablet PO SCH ×3 (08:32→21:30)
[2018-06-06] MEDS: Morphine Inj 4 MG/ML Vial IV.PUSH PRN ×3 (11:44→23:00)
--- NOTE | 2018-06-06 11:46 | P.PNOP ---
Subjective Interval history: Pt comfortable and anxious to get home. Physical Exam Vital signs: Vital Signs 06/05/18 12:00 06/05/18 16:00 06/05/18 16:08 Temperature 97.5 F L 97.8 F Pulse Rate 95 H 86 78 Respiratory Rate 18 18 20 Blood Pressure 132/60 130/60 Pulse Oximetry 92 L 96 06/05/18 19:40 06/05/18 21:20 06/06/18 00:31 Temperature 98.2 F 99.5 F Pulse Rate 90 90 100 H Respiratory Rate 22 22 20 Blood Pressure 142/64 H 136/63 Pulse Oximetry 93 L 94 L 92 L 06/06/18 03:37 06/06/18 04:25 06/06/18 08:00 Temperature 100.8 F H 97.9 F Pulse Rate 98 H 95 H 89 Respiratory Rate 21 18 18 Blood Pressure 127/59 L 126/59 L Pulse Oximetry 95 93 L 91 L 06/06/18 08:34 06/06/18 11:38 Temperature 97.9 F Pulse Rate 97 H 91 H Respiratory Rate 19 20 Blood Pressure 126/58 L Pulse Oximetry 95 92 L Intake & Output 06/05/18 06/06/18 06/06/18 18:59 06:59 18:59 Intake Total 800 / 800 1530 / 1530 Output Total 1000 / 1000 600 / 600 Balance -200 / -200 930 / 930 Weight 115.1 kg Intake: IV 1050 / 1050 Oral 800 / 800 480 / 480 Output: Urine 1000 / 1000 600 / 600 Other: Date of Last Bowel Movement 06/03/18 - Constitutional no acute distress Results - Labs CBC & Chem 7: 06/06/18 05:11 06/05/18 04:39 Laboratory Results - last 24 hr 06/06/18 05:11 WBC 12.0 H RBC 3.69 L Hgb 12.0 L Hct 35.0 L MCV 95.0 MCH 32.4 MCHC 34.2 RDW 13.9 Plt Count 110 L MPV 9.1 Neut % (Auto) 82.8 H Lymph % (Auto) 8.0 L [place] % (Auto) 8.5 H Eos % (Auto) 0.4 Baso % (Auto) 0.3 Neut # (Auto) 10.0 H Lymph # (Auto) 1.0 [place] # (Auto) 1.0 H Eos # (Auto) 0.0 Baso # (Auto) 0.0 WBC Differential . Differential Comment Auto diff final Assessment and Plan - Problem List (1) Status post total right knee replacement using cement Code(s): Z96.651 - Presence of right artificial knee joint Status: Acute (2) Osteoarthritis of right knee Code(s): M17.11 - Unilateral primary osteoarthritis, right knee Status: Chronic Qualifiers: Osteoarthritis type: primary Qualified Code(s): M17.11 - Unilateral primary osteoarthritis, right knee - Attending Attestation Attending Attestation: Sitting up in chair at present time. Wound clean and dry. O2 sat dropped to 78% on 3 liters during PT. Plan for medical management and possible pulmonology consult. Cont inpatient care until stable with lungs.
--- NOTE | 2018-06-06 12:52 | P.PN ---
Subjective Interval history: Follow-up visit for osteoarthritis s/p right knee arthroplasty. COPD and asthma with shortness of breath. Nurse reports patient with desaturation with activity. Patient is seen and examined sitting up in chair and appears to be in no acute distress. Complaints of shortness of breath as well as chronic cough. States he is a daily smoker, did quit for a while however is back to smoking upwards of 2 packs of cigarettes daily. He denies any increase in sputum, endorses chills, low-grade temp noted overnight of 100.8. Patient denies any nausea, vomiting, chest pain. Physical Exam Vital signs: Vital Signs 06/05/18 16:00 06/05/18 16:08 06/05/18 19:40 Temperature 97.8 F 98.2 F Pulse Rate 86 78 90 Respiratory Rate 18 20 22 Blood Pressure 130/60 142/64 H Pulse Oximetry 96 93 L 06/05/18 21:20 06/06/18 00:31 06/06/18 03:37 Temperature 99.5 F Pulse Rate 90 100 H 98 H Respiratory Rate 22 20 21 Blood Pressure 136/63 Pulse Oximetry 94 L 92 L 95 06/06/18 04:25 06/06/18 08:00 06/06/18 08:34 Temperature 100.8 F H 97.9 F Pulse Rate 95 H 89 97 H Respiratory Rate 18 18 19 Blood Pressure 127/59 L 126/59 L Pulse Oximetry 93 L 91 L 95 06/06/18 11:38 Temperature 97.9 F Pulse Rate 91 H Respiratory Rate 20 Blood Pressure 126/58 L Pulse Oximetry 92 L Intake & Output 06/05/18 06/06/18 06/06/18 18:59 06:59 18:59 Intake Total 800 / 800 1530 / 1530 1000 / 1000 Output Total 1000 / 1000 600 / 600 Balance -200 / -200 930 / 930 1000 / 1000 Weight 115.1 kg Intake: IV 1050 / 1050 1000 / 1000 LR 1000 mL Inj 1,000 ML @ 80 1000 / 1000 mls/hr IV.CONT .[id number] [facility] Rx# :[id number] Oral 800 / 800 480 / 480 Output: Urine 1000 / 1000 600 / 600 Other: Date of Last Bowel Movement 06/03/18 Narrative: GENERAL: Well-developed, obese, male sitting up in no acute distress. SKIN: Warm and dry. HEAD: Atraumatic. Normocephalic. EYES: Pupils equal and round. No scleral icterus. No injection or drainage. ENT: No nasal bleeding or discharge. Mucous membranes pink and moist. NECK: Trachea midline. No JVD. CARDIOVASCULAR: Regular rate and rhythm. RESPIRATORY: No accessory muscle use. Upper anterior and posterior expiratory wheezes, bases of lungs without rhonchi or crackles. GASTROINTESTINAL: Abdomen obese soft, non-tender, nondistended. +BS MUSCULOSKELETAL: Extremities without clubbing or cyanosis. Right knee surgical incision well approximated with noted edema to the knee as well as leg. NEUROLOGICAL: Awake, alert and oriented x3. No obvious cranial nerve deficits. Motor grossly within normal limits. Normal speech. PSYCHIATRIC: Appropriate mood and affect; insight and judgment normal. Results - Labs CBC & Chem 7: 06/06/18 05:11 06/05/18 04:39 Laboratory Results - last 24 hr 06/06/18 05:11 WBC 12.0 H RBC 3.69 L Hgb 12.0 L Hct 35.0 L MCV 95.0 MCH 32.4 MCHC 34.2 RDW 13.9 Plt Count 110 L MPV 9.1 Neut % (Auto) 82.8 H Lymph % (Auto) 8.0 L [place] % (Auto) 8.5 H Eos % (Auto) 0.4 Baso % (Auto) 0.3 Neut # (Auto) 10.0 H Lymph # (Auto) 1.0 [place] # (Auto) 1.0 H Eos # (Auto) 0.0 Baso # (Auto) 0.0 WBC Differential . Differential Comment Auto diff final Assessment and Plan - Assessment (1) COPD (chronic obstructive pulmonary disease) Code(s): J44.9 - Chronic obstructive pulmonary disease, unspecified Status: Acute (2) Asthma Code(s): J45.909 - Unspecified asthma, uncomplicated Status: Acute (3) Hypertension Code(s): I10 - Essential (primary) hypertension Status: Acute (4) Hyperlipidemia Code(s): E78.5 - Hyperlipidemia, unspecified Status: Acute (5) Status post total right knee replacement using cement Code(s): Z96.651 - Presence of right artificial knee joint Status: Acute (6) Osteoarthritis of right knee Code(s): M17.11 - Unilateral primary osteoarthritis, right knee Status: Chronic - Plan This is a 63-year-old male with past medical history of osteoarthritis , hypertension, COPD, asthma COPD, hyperlipidemia who was admitted for right total knee arthroplasty with Dr. Krishnan for osteoarthritic degeneration of the right knee. Osteoarthritic degeneration of the right knee Status post right knee arthroplasty today 06/04/[address] Krishnan History of ACL reconstruction and total left knee -Postop care for right knee arthroplasty -Pain pain management with as needed pain medication and bowel regimen -OrthO following -Continue Eliquis for DVT prophylaxis -Physical therapy/rehab per protocol slight Leukocytosis likely related to post op knee arthroplasty -CXray negative 06/05 -WBC improved this morning, Tmax 100.8 -Repeat chest x-ray with concerns for pneumonia COPD Asthma Tobacco dependence -Ongoing wheezing despite scheduled neb treatments -Initiate Symbicort for COPD maintenance -Nasal cannula to keep sat greater than 90% -Counseling on tobacco cessation, continue patch -Pulmonary consult if needed -Monitor respiratory status Right LL PNA, healthcare associated - Low grade temp with SOB - Chest x-ray today with right basilar infiltrate concerning for PNA - Start IV Levaquin, plan to transition to p.o. as clinically improving Hypertension, history of Hyperlipidemia, history of -Blood pressure controlled -Continue home dose lisinopril and Lipitor -Monitor blood pressure DVT prophylaxis: Continue on Eliquis Discussed Condition With: Patient and RN (6) Osteoarthritis of right knee Qualifiers: Osteoarthritis type: primary Qualified Code(s): M17.11 - Unilateral primary osteoarthritis, right knee
--- NOTE | 2018-06-06 15:15 | XR ---
EXAM DATE: 06/06/2018 3:10 PM EST AGE/SEX: 63 years / Male INDICATIONS: . Short of breath. CLINICAL DATA: This is the patient's initial encounter. Patient reports that signs and symptoms have been present for 3 days and indicates a pain score of 0/10. MEDICAL/SURGICAL HISTORY: Chronic obstructive pulmonary disease. Hepatitis C. smoker Cholecys tectomy. COMPARISON: [facility] [place], CHEST 1V SINGLE AP, 06/05/2018. . FINDINGS: The examination demonstrates a focal area of consolidation/infiltrate in the right lung base. This is stable compared to previous dated 06/05/2018. This would be concerning for pneumonia. The left lung is clear. The heart is mildly enlarged. The visualized bony structures demonstrate degenerative bardales es in the spine but are otherwise intact. CONCLUSION: Right basilar infiltrate concerning for pneumonia. Electronically signed by: Anthony Jaramillo MD 06/06/2018 3:14 PM EST
[2018-06-06] MEDS: Budesonide-Formoterol 160/4.5 MCG 6 GM Inhaler INH SCH (21:34)
[2018-06-07] MEDS ORDERED: Acetaminophen 325 MG Tablet PO ONE (00:32)
[2018-06-07 05:31] LABS: Baso # (Auto) 0.1 th/mm3 (0.0-0.2); Baso % (Auto) 0.5 % (0.0-2.0); Eos # (Auto) 0.2 th/mm3 (0.0-0.4); Eos % (Auto) 1.5 % (0.0-4.0); Hematocrit 33.6 % (39.0-51.0); Hemoglobin 11.3 gm/dL (13.0-17.0); Lymph # (Auto) 0.9 th/mm3 (1.0-4.8); Lymph % (Auto) 9.1 % (9.0-44.0); Mean Corpuscular HGB Conc 33.7 % (32.0-36.0); Mean Corpuscular Hemoglobin 32.6 pg (27.0-34.0); Mean Corpuscular Volume 96.6 fL (80.0-100.0); Mono # (Auto) 0.8 th/mm3 (0.0-0.9); Mono % (Auto) 7.9 % (0.0-8.0); Neut # (Auto) 8.4 th/mm3 (1.8-7.7); Platelet Count 113 th/mm3 (150-450); Red Blood Count 3.48 mil/mm3 (4.50-5.90); Red Cell Distribution Width 13.8 % (11.6-17.2); White Blood Count 10.4 th/mm3 (4.0-11.0)
--- NOTE | 2018-06-07 09:41 | P.PN ---
Subjective Interval history: Follow-up visit for right knee arthroplasty, SOB/cough. This morning he reports feeling better, ongoing dry cough with clear sputum, denies any shortness of breath, nausea, vomiting, diarrhea or chest pain. Patient reports little to no sleep overnight due to sweats. He is concerned over how long he will be here in the hospital as he is eager to get back home and take care of his handicap son. We discussed the importance of rehab once discharged. Physical Exam Vital signs: Vital Signs 06/06/18 11:38 06/06/18 15:52 06/06/18 20:00 Temperature 97.9 F 98.9 F Pulse Rate 91 H 94 H 109 H Respiratory Rate 20 17 19 Blood Pressure 126/58 L 101/53 L Pulse Oximetry 92 L 93 L 06/06/18 21:06 06/07/18 00:00 06/07/18 03:22 Temperature 101.4 F H Pulse Rate 76 118 H 90 Respiratory Rate 22 18 19 Blood Pressure 118/58 L Pulse Oximetry 98 93 L 06/07/18 04:00 06/07/18 08:25 06/07/18 08:45 Temperature 98.6 F 97.8 F Pulse Rate 94 H 88 89 Respiratory Rate 18 18 20 Blood Pressure 117/59 L 123/69 Pulse Oximetry 93 L 95 99 Intake & Output 06/06/18 06/07/18 06/07/18 18:59 06:59 18:59 Intake Total 1000 / 1000 200 / 200 Output Total 250 / 250 700 / 700 Balance 1000 / 1000 -50 / -50 -700 / -700 Weight 115.8 kg Intake: IV 1000 / 1000 200 / 200 LR 1000 mL Inj 1,000 ML @ 80 1000 / 1000 mls/hr IV.CONT .[id number] [facility] Rx# :[id number] Cleocin 900 mg/NS Premix 900 mg 50 / 50 In 50 ml @ 100 mls/hr IV.SIG [employer] [facility] Rx#:[id number] Levaquin 750 mg Premix Inj 150 150 / 150 ML @ 100 mls/hr IV.SIG Q24H [facility] Rx#:[id number] Output: Urine 250 / 250 700 / 700 Other: # Incontinent Voids 1 Date of Last Bowel Movement 06/03/18 Narrative: GENERAL: Well-developed, obese, male sitting up in no acute distress. SKIN: Warm and dry. HEAD: Atraumatic. Normocephalic. EYES: Pupils equal and round. No scleral icterus. No injection or drainage. ENT: No nasal bleeding or discharge. Mucous membranes pink and moist. NECK: Trachea midline. CARDIOVASCULAR: Regular rate and rhythm. RESPIRATORY: No accessory muscle use. Posterior distal expiratory wheezing, no rhonchi or crackles. GASTROINTESTINAL: Abdomen obese soft, non-tender, nondistended. +BS MUSCULOSKELETAL: Extremities without clubbing or cyanosis. Right knee surgical incision well approximated with noted edema to the knee as well as leg. NEUROLOGICAL: Awake, alert and oriented x3. No obvious cranial nerve deficits. Motor grossly within normal limits. Normal speech. PSYCHIATRIC: Appropriate mood and affect; insight and judgment normal. Results - Labs CBC & Chem 7: 06/07/18 04:51 06/05/18 04:39 Laboratory Results - last 24 hr 06/07/18 04:51 WBC 10.4 RBC 3.48 L Hgb 11.3 L Hct 33.6 L MCV 96.6 MCH 32.6 MCHC 33.7 RDW 13.8 Plt Count 113 L MPV 9.0 Neut % (Auto) 81.0 H Lymph % (Auto) 9.1 [place] % (Auto) 7.9 Eos % (Auto) 1.5 Baso % (Auto) 0.5 Neut # (Auto) 8.4 H Lymph # (Auto) 0.9 L [place] # (Auto) 0.8 Eos # (Auto) 0.2 Baso # (Auto) 0.1 WBC Differential . Differential Comment Auto diff final - Imaging Impressions Chest X-Ray 06/06/18 00:00 CONCLUSION: Right basilar infiltrate concerning for pneumonia. Assessment and Plan - Assessment (1) COPD (chronic obstructive pulmonary disease) Code(s): J44.9 - Chronic obstructive pulmonary disease, unspecified Status: Acute (2) Asthma Code(s): J45.909 - Unspecified asthma, uncomplicated Status: Acute (3) Hypertension Code(s): I10 - Essential (primary) hypertension Status: Acute (4) Hyperlipidemia Code(s): E78.5 - Hyperlipidemia, unspecified Status: Acute (5) Status post total right knee replacement using cement Code(s): Z96.651 - Presence of right artificial knee joint Status: Acute (6) Osteoarthritis of right knee Code(s): M17.11 - Unilateral primary osteoarthritis, right knee Status: Chronic - Plan This is a 63-year-old male with past medical history of osteoarthritis , hypertension, COPD, asthma COPD, hyperlipidemia who was admitted for right total knee arthroplasty with Dr. Krishnan for osteoarthritic degeneration of the right knee. Osteoarthritic degeneration of the right knee Status post right knee arthroplasty today 06/04/[address] Krishnan History of ACL reconstruction and total left knee -Postop care for right knee arthroplasty -Pain pain management with as needed pain medication and bowel regimen -OrthO following -Continue Eliquis for DVT prophylaxis -Physical therapy/rehab per protocol COPD Asthma Tobacco dependence -Ongoing wheezing despite scheduled neb treatments -Continue Symbicort for COPD maintenance -Nasal cannula to keep sat greater than 90% -Counseling on tobacco cessation, continue patch -Pulmonary consulted, appreciate assistance. -Stated on Solu-Medrol 40 mg every 8 hours -Monitor respiratory status Right LL PNA, healthcare associated -Leukocytosis resolved, T-max overnight 101.4 - Chest x-ray with right basilar infiltrate concerning for PNA - Continue IV Levaquin - Pulmonary following, appreciate assistance. Hypertension, history of Hyperlipidemia, history of -Blood pressure controlled -Continue home dose lisinopril and Lipitor -Monitor blood pressure DVT prophylaxis: Continue on Eliquis Discussed Condition With: Patient, RN and (6) Osteoarthritis of right knee Qualifiers: Osteoarthritis type: primary Qualified Code(s): M17.11 - Unilateral primary osteoarthritis, right knee
[2018-06-07] MEDS: Lisinopril 10 MG Tablet PO SCH (10:02)
[2018-06-07] MEDS: Senna/Docusate Sodium 8.6/50 MG Tablet PO SCH ×2 (10:02→20:07)
[2018-06-07] MEDS: Multivitamin/Minerals Therapeutic Tablet PO SCH ×2 (10:03→20:07)
[2018-06-07] MEDS: Budesonide-Formoterol 160/4.5 MCG 6 GM Inhaler INH SCH ×2 (10:04→20:08)
--- NOTE | 2018-06-07 10:59 | P.PNOP ---
Subjective Interval history: Pt more comfortable today. Physical Exam Vital signs: Vital Signs 06/06/18 11:38 06/06/18 15:52 06/06/18 20:00 Temperature 97.9 F 98.9 F Pulse Rate 91 H 94 H 109 H Respiratory Rate 20 17 19 Blood Pressure 126/58 L 101/53 L Pulse Oximetry 92 L 93 L 06/06/18 21:06 06/07/18 00:00 06/07/18 03:22 Temperature 101.4 F H Pulse Rate 76 118 H 90 Respiratory Rate 22 18 19 Blood Pressure 118/58 L Pulse Oximetry 98 93 L 06/07/18 04:00 06/07/18 08:25 06/07/18 08:45 Temperature 98.6 F 97.8 F Pulse Rate 94 H 88 89 Respiratory Rate 18 18 20 Blood Pressure 117/59 L 123/69 Pulse Oximetry 93 L 95 99 Intake & Output 06/06/18 06/07/18 06/07/18 18:59 06:59 18:59 Intake Total 1000 / 1000 200 / 200 Output Total 250 / 250 700 / 700 Balance 1000 / 1000 -50 / -50 -700 / -700 Weight 115.8 kg Intake: IV 1000 / 1000 200 / 200 LR 1000 mL Inj 1,000 ML @ 80 1000 / 1000 mls/hr IV.CONT .[id number] [facility] Rx# :[id number] Cleocin 900 mg/NS Premix 900 mg 50 / 50 In 50 ml @ 100 mls/hr IV.SIG DBA [facility] Rx#:[id number] Levaquin 750 mg Premix Inj 150 150 / 150 ML @ 100 mls/hr IV.SIG Q24H [facility] Rx#:[id number] Output: Urine 250 / 250 700 / 700 Other: # Incontinent Voids 1 Date of Last Bowel Movement 06/03/18 - Constitutional no acute distress Results - Labs CBC & Chem 7: 06/07/18 04:51 06/05/18 04:39 Laboratory Results - last 24 hr 06/07/18 04:51 WBC 10.4 RBC 3.48 L Hgb 11.3 L Hct 33.6 L MCV 96.6 MCH 32.6 MCHC 33.7 RDW 13.8 Plt Count 113 L MPV 9.0 Neut % (Auto) 81.0 H Lymph % (Auto) 9.1 [place] % (Auto) 7.9 Eos % (Auto) 1.5 Baso % (Auto) 0.5 Neut # (Auto) 8.4 H Lymph # (Auto) 0.9 L [place] # (Auto) 0.8 Eos # (Auto) 0.2 Baso # (Auto) 0.1 WBC Differential . Differential Comment Auto diff final - Imaging Impressions Chest X-Ray 06/06/18 00:00 CONCLUSION: Right basilar infiltrate concerning for pneumonia. Assessment and Plan - Problem List (1) Status post total right knee replacement using cement Code(s): Z96.651 - Presence of right artificial knee joint Status: Acute (2) Osteoarthritis of right knee Code(s): M17.11 - Unilateral primary osteoarthritis, right knee Status: Chronic Qualifiers: Osteoarthritis type: primary Qualified Code(s): M17.11 - Unilateral primary osteoarthritis, right knee - Assessment and Plan Pt now has pneumonia. Being treated by medical with levaquin IV. NV intact to toes. Amblulating with walker but with difficulty. No calf tenderness. Plan pulmonary consult and continued PT before discharge when medically stable.
--- NOTE | 2018-06-07 14:09 | MB ---
cc: Shadi Cobb MD DATE: 06/07/2018 REASON FOR CONSULTATION: Pneumonia and COPD. HISTORY OF PRESENT ILLNESS: The patient is a 63-year-old male with a past medical history of osteoarthritis, hypertension, COPD, hyperlipidemia, who was admitted on 06/04/2018 and underwent a right knee replacement for osteoarthritis. A chest x-ray was obtained on 06/05/2018, which showed no acute cardiopulmonary findings; however, a repeat chest x-ray obtained yesterday showed a right basilar infiltrate concerning for pneumonia. He had a temperature of 101.4 at midnight and the patient was started on antibiotics per primary team. Pulmonary Medicine was consulted for COPD and pneumonia. The patient remains an active smoker and has a 45-year pack history of smoking. He reports a productive cough with clear phlegm, wheezing and shortness of breath when climbing up the stairs. He denies any prior history of intubation for his COPD. He was treated for pneumonia on several occasions in the past. The patient denies any nausea, vomiting or abdominal pain. PAST MEDICAL HISTORY: Significant for COPD, osteoarthritis, depression, hepatitis C, peripheral vascular disease. PAST SURGICAL HISTORY: Status post right knee replacement on 06/04/2018. Previous total left knee replacement, previous left inguinal hernia repair. FAMILY HISTORY: Sister with breast cancer. ALLERGIES: PENICILLIN. SOCIAL HISTORY: Active smoker with a minimum 61-[id number] history of smoking. Nondrinker. The patient has a remote history of polysubstance abuse per records. CURRENT MEDICATIONS: 1. DuoNeb. 2. Eliquis. 3. Levaquin started today. 4. Lisinopril. REVIEW OF SYSTEMS: As per HPI. The rest of review of systems unremarkable. PHYSICAL EXAMINATION: GENERAL: A 63-year-old male, sitting in chair, in mild distress. VITAL SIGNS: T-max 101.4, pulse of 89, respiratory rate of 20, blood pressure 123/69, saturation 95-99% on 3 liters. HEENT: Atraumatic, normocephalic. Pupils are equal, round, reactive to light and accommodation. Extraocular muscles intact. Conjunctivae pink. Anicteric sclerae. Oral mucosa within normal. NECK: Supple. No JVD, adenopathy, or thyromegaly. Trachea in the midline. CARDIOVASCULAR: Regular rate and rhythm. Normal S1, S2. No murmurs, rubs or gallops noted. PULMONARY: Bilateral equal air entry. A few scattered wheezing. ABDOMEN: Soft, obese, nontender. No distention. Positive bowel sounds. EXTREMITIES: No cyanosis, clubbing. Status post right knee replacement. NEUROLOGIC: No focal sensory deficit. LABORATORY DATA: WBC 10.4, hemoglobin 11.3, hematocrit 33, platelet count of 113. BMP from 06/05/2018 showed a sodium 139, potassium 4.6, chloride 103, CO2 of 31, BUN 19, creatinine 0.82, glucose 136. RADIOGRAPHIC STUDIES: A chest x-ray from 06/06/2018 showed a right basilar infiltrate concerning for pneumonia. IMPRESSION: 1. Respiratory insufficiency. 2. Right basilar pneumonia. 3. Chronic obstructive pulmonary disease. 4. Active tobacco use. 5. Status post right knee replacement on 06/04/2018. 6. History of osteoarthritis. 7. History of hepatitis C. 8. Peripheral vascular disease. RECOMMENDATIONS: 1. Continue with oxygen and maintain saturations above 92%. 2. Continue Bronchodilators in the form of DuoNeb every 4 hours plus every 2 hours p.r.n. for shortness of breath. In addition, the patient was started on Symbicort 160/4.5 two puffs b.i.d. 3. We will start Solu-Medrol 40 mg IV every 8 hours. 4. BiPAP p.r.n. for respiratory distress. 5. Continue with antibiotics in the form of Levaquin and monitor for signs of infection, which include fever and WBC. Follow up on blood cultures. In addition, we will obtain a sputum culture with Gram stain and we will check strep pneumonia and legionella urinary antigen. 6. PFT when stable to assess the severity of his obstructive lung disease. 7. The patient is counseled regarding smoking cessation. 8. Gastrointestinal and deep venous thrombosis prophylaxis. He is on Eliquis 2.5 mg p.o. b.i.d. 9. We will repeat chest x-ray in a.m. 10. Further recommendations will be based on hospital course. Thank you for this consultation and allowing us to participate in this patient's care. MD MORENO Oconnor/patrick , 12:35 PM , 12:48 PM
[2018-06-07] MEDS: MethylPREDNISolone Sod Succinate Inj 40 MG/ML Vial IV.PUSH SCH ×3 (17:26→22:00)
[2018-06-08 05:05] LABS: Carbon Dioxide 32.3 meq/L (21.0-32.0); Potassium 4.6 meq/L (3.5-5.1)
[2018-06-08] MEDS: MethylPREDNISolone Sod Succinate Inj 40 MG/ML Vial IV.PUSH SCH ×3 (06:02→21:50)
[2018-06-08 06:13] LABS: Baso % (Auto) 0.2 % (0.0-2.0); Hematocrit 34.1 % (39.0-51.0); Hemoglobin 11.5 gm/dL (13.0-17.0); Lymph # (Auto) 0.2 th/mm3 (1.0-4.8); Lymph % (Auto) 2.3 % (9.0-44.0); Mean Corpuscular HGB Conc 33.7 % (32.0-36.0); Mean Corpuscular Hemoglobin 32.1 pg (27.0-34.0); Mean Corpuscular Volume 95.2 fL (80.0-100.0); Mean Platelet Volume 9.1 fL (7.0-11.0); Mono # (Auto) 0.4 th/mm3 (0.0-0.9); Mono % (Auto) 3.6 % (0.0-8.0); Neut # (Auto) 9.3 th/mm3 (1.8-7.7); Neut % (Auto) 93.9 % (16.0-70.0); Platelet Count 124 th/mm3 (150-450); Red Blood Count 3.58 mil/mm3 (4.50-5.90); Red Cell Distribution Width 13.4 % (11.6-17.2); White Blood Count 9.9 th/mm3 (4.0-11.0)
--- NOTE | 2018-06-08 07:15 | XR ---
EXAM DATE: 06/08/2018 7:12 AM EST AGE/SEX: 63 years / Male INDICATIONS: Short of breath, coughing, evaluate COPD and pneumonia CLINICAL DATA: This is the patient's subsequent encounter. Patient reports that signs and symptoms h ave been present for 4 - 6 days and indicates a pain score of 5/10. MEDICAL/SURGICAL HISTORY: Chronic obstructive pulmonary disease. Hepatitis C. Cholecystectomy. right knee replaced COMPARISON: [facility], CHEST 2V AP&LAT, 06/06/2018. . FINDINGS: Aeration is improved with near complete clearance of bilateral infiltrates. Cardiac contours are stab le. No significant effusion. CONCLUSION: Improving aeration Electronically signed by: Barry Del Rio MD 06/08/2018 7:14 AM EST
--- NOTE | 2018-06-08 09:03 | P.PNPL ---
Subjective Interval history: Patient is feeling better. CXR this morning showed improving aeration. Afebrile. Physical Exam Vital signs: Vital Signs 06/07/18 11:45 06/07/18 15:20 06/07/18 15:52 Temperature 98 F 97.8 F Pulse Rate 101 H 98 H 90 Respiratory Rate 19 19 20 Blood Pressure 117/58 L 120/59 L Pulse Oximetry 92 L 96 06/07/18 20:00 06/07/18 20:07 06/07/18 23:41 Temperature 98.5 F Pulse Rate 94 H 91 H 89 Respiratory Rate 20 22 20 Blood Pressure 120/59 L Pulse Oximetry 92 L 99 06/08/18 00:03 06/08/18 03:24 06/08/18 03:38 Temperature 97.3 F L 98.1 F Pulse Rate 87 89 90 Respiratory Rate 20 18 18 Blood Pressure 124/62 150/81 H Pulse Oximetry 96 94 L Intake & Output 06/07/18 06/08/18 06/08/18 18:59 06:59 18:59 Intake Total 1350 / 1350 1100 / 1100 Output Total 2201 / 2201 1775 / 1775 Balance -851 / -851 -675 / -675 Weight 116.1 kg Intake: IV 150 / 150 Levaquin 750 mg Premix Inj 150 150 / 150 ML @ 100 mls/hr IV.SIG Q24H RAINER Rx#:[id number] Oral 1200 / 1200 1100 / 1100 Output: Urine 2200 / 2200 1775 / 1775 Stool 1 / Other: Date of Last Bowel Movement 06/07/18 # Bowel Movements 0 - Constitutional no acute distress - Routine HEENT Exam Head: Present: normocephalic, atraumatic, tenderness of temporal artery Eye: Present: EOMI, PERRL, conjunctivae pink ENT: Present: mucous membranes moist - Routine Neck Exam Present: supple, full ROM, trachea midline - Routine Respiratory Exam Present: CTA bilaterally - Routine Cardiovascular Exam Present: RRR, S1, S2 - Routine Abdominal Exam Present: soft, normoactive bowel sounds - Routine Extremities Exam Present: edema Comments: + edema RLE - Routine Neurological Exam Present: alert, oriented X3, CN II-XII intact Assessment and Plan - Plan IMPRESSION: 1. Respiratory insufficiency. 2. Right basilar pneumonia. 3. COPD 4. Active tobacco use. 5. Status post right knee replacement on 06/04/2018. 6. History of osteoarthritis. 7. History of hepatitis C. 8. Peripheral vascular disease. Plan: Continue with oxygen and maintain saturations above 92%. Bronchodilators(DuoNeb, Symbicort) Continue Solu-Medrol 40 mg IV every 8 hours. BiPAP p.r.n. for respiratory distress. CXR today showed improving aeration Abx( Levaquin) monitor for signs of infection( fever and WBC). strep pneumonia and legionella urinary antigen negative. Follow up on Blood and sputum cx 06/07- pending Asses for home oxygen prior to discharge. PFT when stable to assess the severity of his obstructive lung disease. Patient is counseled regarding smoking cessation. GI/DVT prophylaxis. On Eliquis 2.5 mg p.o. b.i.d. Continue treatment plan
[2018-06-08] MEDS: Multivitamin/Minerals Therapeutic Tablet PO SCH ×2 (09:23→20:20)
[2018-06-08] MEDS: Budesonide-Formoterol 160/4.5 MCG 6 GM Inhaler INH SCH ×2 (09:23→20:19)
[2018-06-08] MEDS: Lisinopril 10 MG Tablet PO SCH (09:23)
[2018-06-08] MEDS: Senna/Docusate Sodium 8.6/50 MG Tablet PO SCH ×2 (09:27→20:20)
--- NOTE | 2018-06-08 13:33 | P.PN ---
Subjective Interval history: Follow-up visit for right knee arthroplasty and pneumonia. Patient seen and examined sitting up in bed in no acute distress. He reports that he is feeling much better today. Some ongoing intermittent coughing but no shortness of breath at rest. He denies any further fevers, chills, nausea, vomiting or diarrhea. He complains of insomnia and is requesting something for sleep. He continues to report that he would like to go home. We once again discussed the importance of a safe discharge due to the fact that he is still unable to climb stairs. Physical Exam Vital signs: Vital Signs 06/07/18 15:20 06/07/18 15:52 06/07/18 20:00 Temperature 97.8 F 98.5 F Pulse Rate 98 H 90 94 H Respiratory Rate 19 20 20 Blood Pressure 120/59 L 120/59 L Pulse Oximetry 96 92 L 06/07/18 20:07 06/07/18 23:41 06/08/18 00:03 Temperature 97.3 F L Pulse Rate 91 H 89 87 Respiratory Rate 22 20 20 Blood Pressure 124/62 Pulse Oximetry 99 96 06/08/18 03:24 06/08/18 03:38 06/08/18 07:50 Temperature 98.1 F 97.5 F L Pulse Rate 89 90 80 Respiratory Rate 18 18 19 Blood Pressure 150/81 H 131/64 Pulse Oximetry 94 L 90 L 06/08/18 09:10 06/08/18 12:30 Temperature Pulse Rate 93 H 88 Respiratory Rate 16 16 Blood Pressure Pulse Oximetry 96 Intake & Output 06/07/18 06/08/18 06/08/18 18:59 06:59 18:59 Intake Total 1350 / 1350 1100 / 1100 Output Total 2201 / 2201 1775 / 1775 Balance -851 / -851 -675 / -675 Weight 116.1 kg Intake: IV 150 / 150 Levaquin 750 mg Premix Inj 150 150 / 150 ML @ 100 mls/hr IV.SIG Q24H RAINER Rx#:[id number] Oral 1200 / 1200 1100 / 1100 Output: Urine 2200 / 2200 1775 / 1775 Stool Other: Date of Last Bowel Movement 06/07/18 06/08/18 # Bowel Movements 0 1 Narrative: GENERAL: Well-developed, obese, male sitting up in no acute distress. SKIN: Warm and dry. HEAD: Atraumatic. Normocephalic. EYES: Pupils equal and round. No scleral icterus. No injection or drainage. ENT: No nasal bleeding or discharge. Mucous membranes pink and moist. NECK: Trachea midline. CARDIOVASCULAR: Regular rate and rhythm. RESPIRATORY: No accessory muscle use. Posterior distal expiratory wheezing, no rhonchi or crackles. GASTROINTESTINAL: Abdomen obese soft, non-tender, nondistended. +BS MUSCULOSKELETAL: Extremities without clubbing or cyanosis. Right knee surgical incision well approximated with noted edema to the knee as well as leg. NEUROLOGICAL: Awake, alert and oriented x3. No obvious cranial nerve deficits. Motor grossly within normal limits. Normal speech. PSYCHIATRIC: Appropriate mood and affect; insight and judgment normal. Results - Labs CBC & Chem 7: 06/08/18 04:21 06/08/18 04:21 Laboratory Results - last 24 hr 06/08/18 06/08/18 04:21 04:21 WBC 9.9 RBC 3.58 L Hgb 11.5 L Hct 34.1 L MCV 95.2 MCH 32.1 MCHC 33.7 RDW 13.4 Plt Count 124 L MPV 9.1 Neut % (Auto) 93.9 H Lymph % (Auto) 2.3 L [place] % (Auto) 3.6 Eos % (Auto) 0.0 Baso % (Auto) 0.2 Neut # (Auto) 9.3 H Lymph # (Auto) 0.2 L [place] # (Auto) 0.4 Eos # (Auto) 0.0 Baso # (Auto) 0.0 WBC Differential . Differential Comment Auto diff final Sodium 136 Potassium 4.6 Chloride 100 Carbon Dioxide 32.3 H Anion Gap 4 L BUN 19 H Creatinine 0.87 Estimated GFR 89 Random Glucose 187 H Calcium 9.0 Microbiology 06/07/18 15:30 Sputum - Expectorated Sputum Gram Stain - Final 06/07/18 00:50 Blood - Peripheral Aerobic Blood Culture - Preliminary No growth in 1 day 06/07/18 00:50 Blood - Peripheral Anaerobic Blood Culture - Preliminary No growth in 1 day 06/07/18 01:07 Blood - Peripheral Aerobic Blood Culture - Preliminary No growth in 1 day 06/07/18 01:07 Blood - Peripheral Anaerobic Blood Culture - Preliminary No growth in 1 day 06/07/18 15:30 Urine - Clean Catch Urine Streptococcus pneumoniae Antigen ( M - Final Presumptive negative for streptococcus pneumoniae antigen, suggesting no current or recent infection. Infection due to Streptococcus pneumoniae cannot be ruled out since the antigen present in the sample may be below the detection limit of the test. 06/07/18 15:30 Urine - Clean Catch Urine Legionella Antigen - Final Presumptive negative for Legionella pneumophila serogroup 1 antigen in urine, suggesting no recent or recurrent infection. Infection due to Legionella cannot be ruled out since other serogroups and species may cause disease, antigen may not be present in urine in early infection, and the level of antigen present in the urine may be below the detection limit of the test. - Imaging Impressions Chest X-Ray 06/08/18 00:00 CONCLUSION: Improving aeration Assessment and Plan - Assessment (1) COPD (chronic obstructive pulmonary disease) Code(s): J44.9 - Chronic obstructive pulmonary disease, unspecified Status: Acute (2) Asthma Code(s): J45.909 - Unspecified asthma, uncomplicated Status: Acute (3) Hypertension Code(s): I10 - Essential (primary) hypertension Status: Acute (4) Hyperlipidemia Code(s): E78.5 - Hyperlipidemia, unspecified Status: Acute (5) Status post total right knee replacement using cement Code(s): Z96.651 - Presence of right artificial knee joint Status: Acute (6) Osteoarthritis of right knee Code(s): M17.11 - Unilateral primary osteoarthritis, right knee Status: Chronic - Plan This is a 63-year-old male with past medical history of osteoarthritis , hypertension, COPD, asthma COPD, hyperlipidemia who was admitted for right total knee arthroplasty with Dr. Krishnan for osteoarthritic degeneration of the right knee. Osteoarthritic degeneration of the right knee Status post right knee arthroplasty today 06/04/[address] Krishnan History of ACL reconstruction and total left knee -Postop care for right knee arthroplasty -Pain pain management with as needed pain medication and bowel regimen -OrthO following -Continue Eliquis for DVT prophylaxis -Physical therapy/rehab per protocol COPD Asthma Tobacco dependence -Wheezing improved -Continue Symbicort for COPD maintenance -Nasal cannula to keep sat greater than 90% -Nicotine patch -Pulmonary consulted, appreciate assistance. -Continue Solu-Medrol 40 mg every 8 hours, transition to p.o prednisone prior to DC to [facility] -Monitor respiratory status Right LL PNA, healthcare associated -Leukocytosis resolved, T-max overnight 101.4 - Chest x-ray with right basilar infiltrate concerning for PNA -Switch IV Levaquin to p.o. -No leukocytosis, afebrile, chest x-ray today with improving aeration. - Pulmonary following, appreciate assistance. Hypertension, history of Hyperlipidemia, history of -Blood pressure controlled -Continue home dose lisinopril and Lipitor -Monitor blood pressure Insomnia -Trial of PRN Trazodone DVT prophylaxis: Continue on Eliquis Discussed Condition With: Patient, RN, and . Discharge Planning: DC to [facility], pending review from [place] and auth. (6) Osteoarthritis of right knee Qualifiers: Osteoarthritis type: primary Qualified Code(s): M17.11 - Unilateral primary osteoarthritis, right knee
--- NOTE | 2018-06-08 14:05 | P.PNOP ---
Subjective Interval history: Pt comfortable as far as knee is concerned. Physical Exam Vital signs: Vital Signs 06/07/18 15:20 06/07/18 15:52 06/07/18 20:00 Temperature 97.8 F 98.5 F Pulse Rate 98 H 90 94 H Respiratory Rate 19 20 20 Blood Pressure 120/59 L 120/59 L Pulse Oximetry 96 92 L 06/07/18 20:07 06/07/18 23:41 06/08/18 00:03 Temperature 97.3 F L Pulse Rate 91 H 89 87 Respiratory Rate 22 20 20 Blood Pressure 124/62 Pulse Oximetry 99 96 06/08/18 03:24 06/08/18 03:38 06/08/18 07:50 Temperature 98.1 F 97.5 F L Pulse Rate 89 90 80 Respiratory Rate 18 18 19 Blood Pressure 150/81 H 131/64 Pulse Oximetry 94 L 90 L 06/08/18 09:10 06/08/18 12:00 06/08/18 12:30 Temperature 97.8 F Pulse Rate 93 H 78 88 Respiratory Rate 16 18 16 Blood Pressure 120/68 Pulse Oximetry 96 98 Intake & Output 06/07/18 06/08/18 06/08/18 18:59 06:59 18:59 Intake Total 1350 / 1350 1100 / 1100 Output Total 2201 / 2201 1775 / 1775 Balance -851 / -851 -675 / -675 Weight 116.1 kg Intake: IV 150 / 150 Levaquin 750 mg Premix Inj 150 150 / 150 ML @ 100 mls/hr IV.SIG Q24H [facility]INER Rx#:[id number] Oral 1200 / 1200 1100 / 1100 Output: Urine 2200 / 2200 1775 / 1775 Stool Other: Date of Last Bowel Movement 06/07/18 06/08/18 # Bowel Movements 0 1 - Constitutional no acute distress Results - Labs CBC & Chem 7: 06/08/18 04:21 06/08/18 04:21 Laboratory Results - last 24 hr 06/08/18 06/08/18 04:21 04:21 WBC 9.9 RBC 3.58 L Hgb 11.5 L Hct 34.1 L MCV 95.2 MCH 32.1 MCHC 33.7 RDW 13.4 Plt Count 124 L MPV 9.1 Neut % (Auto) 93.9 H Lymph % (Auto) 2.3 L [place] % (Auto) 3.6 Eos % (Auto) 0.0 Baso % (Auto) 0.2 Neut # (Auto) 9.3 H Lymph # (Auto) 0.2 L [place] # (Auto) 0.4 Eos # (Auto) 0.0 Baso # (Auto) 0.0 WBC Differential . Differential Comment Auto diff final Sodium 136 Potassium 4.6 Chloride 100 Carbon Dioxide 32.3 H Anion Gap 4 L BUN 19 H Creatinine 0.87 Estimated GFR 89 Random Glucose 187 H Calcium 9.0 Microbiology 06/07/18 15:30 Sputum - Expectorated Sputum Gram Stain - Final 06/07/18 00:50 Blood - Peripheral Aerobic Blood Culture - Preliminary No growth in 1 day 06/07/18 00:50 Blood - Peripheral Anaerobic Blood Culture - Preliminary No growth in 1 day 06/07/18 01:07 Blood - Peripheral Aerobic Blood Culture - Preliminary No growth in 1 day 06/07/18 01:07 Blood - Peripheral Anaerobic Blood Culture - Preliminary No growth in 1 day 06/07/18 15:30 Urine - Clean Catch Urine Streptococcus pneumoniae Antigen ( M - Final Presumptive negative for streptococcus pneumoniae antigen, suggesting no current or recent infection. Infection due to Streptococcus pneumoniae cannot be ruled out since the antigen present in the sample may be below the detection limit of the test. 06/07/18 15:30 Urine - Clean Catch Urine Legionella Antigen - Final Presumptive negative for Legionella pneumophila serogroup 1 antigen in urine, suggesting no recent or recurrent infection. Infection due to Legionella cannot be ruled out since other serogroups and species may cause disease, antigen may not be present in urine in early infection, and the level of antigen present in the urine may be below the detection limit of the test. - Imaging Impressions Chest X-Ray 06/08/18 00:00 CONCLUSION: Improving aeration Assessment and Plan - Problem List (1) Status post total right knee replacement using cement Code(s): Z96.651 - Presence of right artificial knee joint Status: Acute (2) Osteoarthritis of right knee Code(s): M17.11 - Unilateral primary osteoarthritis, right knee Status: Chronic Qualifiers: Osteoarthritis type: primary Qualified Code(s): M17.11 - Unilateral primary osteoarthritis, right knee - Assessment and Plan Pt now has pneumonia. Being treated by medical with levaquin IV. NV intact to toes. Amblulating with walker but with difficulty. No calf tenderness. Plan pulmonary consult and continued PT before discharge when medically stable. - Attending Attestation Attending Attestation: Wound clean and dry. On CPM at moment. Pt will need In patient rehab for PT. On 3 liters of oxygen at present.
[2018-06-08] MEDS: levoFLOXacin 750 MG Tablet PO SCH (17:40)
[2018-06-08] MEDS: traZODone 50 MG Tablet PO PRN (23:26)
[2018-06-09] MEDS: MethylPREDNISolone Sod Succinate Inj 40 MG/ML Vial IV.PUSH SCH ×3 (06:25→21:26)
--- NOTE | 2018-06-09 07:42 | P.PNPL ---
Subjective Interval history: Patient is lying in bed in NAD. On 2L oxygen. States his breathing is better. Afebrile. Physical Exam Vital signs: Vital Signs 06/08/18 07:50 06/08/18 09:10 06/08/18 11:22 Temperature 97.5 F L 97.5 F L Pulse Rate 80 93 H 88 Respiratory Rate 19 16 16 Blood Pressure 131/64 141/65 H Pulse Oximetry 90 L 96 94 L 06/08/18 12:00 06/08/18 12:30 06/08/18 15:50 Temperature 97.8 F 97.4 F L Pulse Rate 78 88 93 H Respiratory Rate 18 16 19 Blood Pressure 120/68 141/74 H Pulse Oximetry 98 93 L 06/08/18 15:57 06/08/18 19:42 06/08/18 20:00 Temperature 98 F Pulse Rate 95 H 97 H Respiratory Rate 18 16 Blood Pressure 144/61 H Pulse Oximetry 93 L 92 L 92 L 06/08/18 20:25 06/08/18 23:22 06/08/18 23:31 Temperature 97.5 F L Pulse Rate 96 H 88 92 H Respiratory Rate 16 16 19 Blood Pressure 141/65 H Pulse Oximetry 94 L 92 L 06/09/18 03:50 06/09/18 04:03 Temperature 97.1 F L Pulse Rate 75 77 Respiratory Rate 20 18 Blood Pressure 144/65 H Pulse Oximetry 94 L Intake & Output 06/08/18 06/09/18 06/09/18 18:59 06:59 18:59 Intake Total 1500 / 1500 850 / 850 Output Total 1350 / 1350 1375 / 1375 Balance 150 / 150 -525 / -525 Weight 114.2 kg Intake: Oral 1500 / 1500 850 / 850 Output: Urine 1350 / 1350 1375 / 1375 Other: Date of Last Bowel Movement 06/08/18 06/08/18 # Bowel Movements 1 0 - Constitutional no acute distress - Routine HEENT Exam Head: Present: normocephalic, atraumatic Eye: Present: EOMI, PERRL, normal accommodation, conjunctivae pink ENT: Present: mucous membranes moist - Routine Neck Exam Present: supple, full ROM, trachea midline - Routine Respiratory Exam Present: CTA bilaterally - Routine Cardiovascular Exam Present: RRR, S1, S2 - Routine Abdominal Exam Present: soft, normoactive bowel sounds - Routine Extremities Exam Present: edema, pulses intact Comments: Edema RLE, s/p right knee replacement. - Routine Neurological Exam Present: alert, oriented X3, CN II-XII intact - Routine Psychiatric Exam Present: normal affect Assessment and Plan - Plan IMPRESSION: 1. Respiratory insufficiency. 2. Right basilar pneumonia. 3. COPD 4. Active tobacco use. 5. Status post right knee replacement on 06/04/2018. 6. History of osteoarthritis. 7. History of hepatitis C. 8. Peripheral vascular disease. Plan: Continue with oxygen and maintain saturations above 92%. Bronchodilators(DuoNeb, Symbicort), IS Decrease Solu-Medrol 40 mg IV every Q12 BiPAP p.r.n. for respiratory distress. CXR 06/08 showed improving aeration Abx( Levaquin) monitor for signs of infection( fever and WBC). strep pneumonia and legionella urinary antigen negative. Follow up on Blood and sputum cx 06/07- NGTD Asses for home oxygen prior to discharge. Patient is counseled regarding smoking cessation. GI/DVT prophylaxis. On Eliquis 2.5 mg p.o. b.i.d. Continue treatment plan
[2018-06-09] MEDS: Multivitamin/Minerals Therapeutic Tablet PO SCH ×2 (10:15→21:26)
[2018-06-09] MEDS: Senna/Docusate Sodium 8.6/50 MG Tablet PO SCH ×2 (10:15→21:25)
[2018-06-09] MEDS: Lisinopril 10 MG Tablet PO SCH (10:16)
[2018-06-09] MEDS: Budesonide-Formoterol 160/4.5 MCG 6 GM Inhaler INH SCH ×2 (10:17→21:27)
--- NOTE | 2018-06-09 12:59 | P.PNOP ---
Subjective Interval history: The patient is doing relatively well. He has minimal complaints related to his knee itself although he does say that there is a blister. He is ready to go to [facility] when they will let him go. Physical Exam Vital signs: Vital Signs 06/08/18 15:50 06/08/18 15:57 06/08/18 19:42 Temperature 97.4 F L 98 F Pulse Rate 93 H 95 H 97 H Respiratory Rate 19 18 16 Blood Pressure 141/74 H 144/61 H Pulse Oximetry 93 L 93 L 92 L 06/08/18 20:00 06/08/18 20:25 06/08/18 23:22 Temperature 97.5 F L Pulse Rate 96 H 88 Respiratory Rate 16 16 Blood Pressure 141/65 H Pulse Oximetry 92 L 94 L 06/08/18 23:31 06/09/18 03:50 06/09/18 04:03 Temperature 97.1 F L Pulse Rate 92 H 75 77 Respiratory Rate 19 20 18 Blood Pressure 144/65 H Pulse Oximetry 92 L 94 L 06/09/18 07:00 06/09/18 08:00 06/09/18 08:38 Temperature 97.3 F L Pulse Rate 82 77 Respiratory Rate 14 16 Blood Pressure 146/79 H Pulse Oximetry 92 L 97 06/09/18 11:00 06/09/18 12:00 Temperature 97.7 F Pulse Rate 89 82 Respiratory Rate 14 18 Blood Pressure 126/57 L Pulse Oximetry 93 L Intake & Output 06/08/18 06/09/18 06/09/18 18:59 06:59 18:59 Intake Total 1500 / 1500 850 / 850 Output Total 1350 / 1350 1375 / 1375 Balance 150 / 150 -525 / -525 Weight 114.2 kg Intake: Oral 1500 / 1500 850 / 850 Output: Urine 1350 / 1350 1375 / 1375 Other: Date of Last Bowel Movement 06/08/18 06/08/18 # Bowel Movements 1 0 Narrative: He is sitting out of bed in the chair when seen. The wound is clean and dry and healing well; however there is a blister about 2 cm in diameter to the lateral aspect of the patella. The neurovascular status is intact. Results - Labs CBC & Chem 7: 06/08/18 04:21 06/08/18 04:21 Microbiology 06/07/18 00:50 Blood - Peripheral Aerobic Blood Culture - Preliminary No growth in 2 days 06/07/18 00:50 Blood - Peripheral Anaerobic Blood Culture - Preliminary No growth in 2 days 06/07/18 01:07 Blood - Peripheral Aerobic Blood Culture - Preliminary No growth in 2 days 06/07/18 01:07 Blood - Peripheral Anaerobic Blood Culture - Preliminary No growth in 2 days 06/07/18 15:30 Sputum - Expectorated Sputum Gram Stain - Final 06/07/18 15:30 Sputum - Expectorated Sputum Sputum Culture - Final Heavy growth normal respiratory dajuan Assessment and Plan - Ortho Post Op Day # 5 - Problem List (1) Status post total right knee replacement using cement Code(s): Z96.651 - Presence of right artificial knee joint Status: Acute - Assessment and Plan Condition: Good. Orthopedically stable. Discharge plans: [facility] for inpatient rehabilitation. Per Dr. Krishnan: Pt now has pneumonia. Being treated by medical with levaquin IV. NV intact to toes. Amblulating with walker but with difficulty. No calf tenderness. Plan pulmonary consult and continued PT before discharge when medically stable.
--- NOTE | 2018-06-09 13:49 | P.PN ---
Subjective Interval history: Follow-up visit for right knee arthroplasty and pneumonia. Patient seen and examined sitting up in bed with physical therapist at bedside preparing to get out of bed this morning. He denies any fevers, chills, nausea, vomiting, diarrhea. Reports improvement in cough, denies shortness of breath. Pending authorization from insurance to discharge to [place] on Monday. Physical Exam Vital signs: Vital Signs 06/08/18 15:50 06/08/18 15:57 06/08/18 19:42 Temperature 97.4 F L 98 F Pulse Rate 93 H 95 H 97 H Respiratory Rate 19 18 16 Blood Pressure 141/74 H 144/61 H Pulse Oximetry 93 L 93 L 92 L 06/08/18 20:00 06/08/18 20:25 06/08/18 23:22 Temperature 97.5 F L Pulse Rate 96 H 88 Respiratory Rate 16 16 Blood Pressure 141/65 H Pulse Oximetry 92 L 94 L 06/08/18 23:31 06/09/18 03:50 06/09/18 04:03 Temperature 97.1 F L Pulse Rate 92 H 75 77 Respiratory Rate 19 20 18 Blood Pressure 144/65 H Pulse Oximetry 92 L 94 L 06/09/18 07:00 06/09/18 08:00 06/09/18 08:38 Temperature 97.3 F L Pulse Rate 82 77 Respiratory Rate 14 16 Blood Pressure 146/79 H Pulse Oximetry 92 L 97 06/09/18 11:00 06/09/18 12:00 Temperature 97.7 F Pulse Rate 89 82 Respiratory Rate 14 18 Blood Pressure 126/57 L Pulse Oximetry 93 L Intake & Output 06/08/18 06/09/18 06/09/18 18:59 06:59 18:59 Intake Total 1500 / 1500 850 / 850 Output Total 1350 / 1350 1375 / 1375 Balance 150 / 150 -525 / -525 Weight 114.2 kg Intake: Oral 1500 / 1500 850 / 850 Output: Urine 1350 / 1350 1375 / 1375 Other: Date of Last Bowel Movement 06/08/18 06/08/18 # Bowel Movements 1 0 Narrative: GENERAL: Well-developed, obese, male sitting up in no acute distress. SKIN: Warm and dry. HEAD: Atraumatic. Normocephalic. EYES: Pupils equal and round. No scleral icterus. No injection or drainage. ENT: No nasal bleeding or discharge. Mucous membranes pink and moist. NECK: Trachea midline. CARDIOVASCULAR: Regular rate and rhythm. RESPIRATORY: No accessory muscle use. Posterior wheezing, mild, improved, no rhonchi or crackles. GASTROINTESTINAL: Abdomen obese soft, non-tender, nondistended. +BS MUSCULOSKELETAL: Extremities without clubbing or cyanosis. Right knee surgical incision well approximated with trace edema and minimal erythema surrounding adhesive noted, small bulla on the lateral knee. NEUROLOGICAL: Awake, alert and oriented x3. No obvious cranial nerve deficits. Motor grossly within normal limits. Normal speech. PSYCHIATRIC: Appropriate mood and affect; insight and judgment normal. Results - Labs CBC & Chem 7: 06/08/18 04:21 06/08/18 04:21 Microbiology 06/07/18 00:50 Blood - Peripheral Aerobic Blood Culture - Preliminary No growth in 2 days 06/07/18 00:50 Blood - Peripheral Anaerobic Blood Culture - Preliminary No growth in 2 days 06/07/18 01:07 Blood - Peripheral Aerobic Blood Culture - Preliminary No growth in 2 days 06/07/18 01:07 Blood - Peripheral Anaerobic Blood Culture - Preliminary No growth in 2 days 06/07/18 15:30 Sputum - Expectorated Sputum Gram Stain - Final 06/07/18 15:30 Sputum - Expectorated Sputum Sputum Culture - Final Heavy growth normal respiratory dajuan Assessment and Plan - Assessment (1) COPD (chronic obstructive pulmonary disease) Code(s): J44.9 - Chronic obstructive pulmonary disease, unspecified Status: Acute (2) Asthma Code(s): J45.909 - Unspecified asthma, uncomplicated Status: Acute (3) Hypertension Code(s): I10 - Essential (primary) hypertension Status: Acute (4) Hyperlipidemia Code(s): E78.5 - Hyperlipidemia, unspecified Status: Acute (5) Status post total right knee replacement using cement Code(s): Z96.651 - Presence of right artificial knee joint Status: Acute (6) Osteoarthritis of right knee Code(s): M17.11 - Unilateral primary osteoarthritis, right knee Status: Chronic - Plan This is a 63-year-old male with past medical history of osteoarthritis , hypertension, COPD, asthma COPD, hyperlipidemia who was admitted for right total knee arthroplasty with Dr. Krishnan for osteoarthritic degeneration of the right knee. Osteoarthritic degeneration of the right knee Status post right knee arthroplasty today 06/04/[address] Krishnan History of ACL reconstruction and total left knee -Postop care for right knee arthroplasty -Pain pain management with as needed pain medication and bowel regimen -OrthO following -Continue Eliquis for DVT prophylaxis -Physical therapy/rehab per protocol COPD Asthma Tobacco dependence -Wheezing improved -Continue Symbicort for COPD maintenance -Nasal cannula to keep sat greater than 90% -Nicotine patch -Pulmonary consulted, appreciate assistance. -Continue Solu-Medrol 40 mg every 12 hours, transition to p.o prednisone prior to DC to [place] -Monitor respiratory status Right LL PNA, healthcare associated -Leukocytosis resolved, T-max overnight 101.4 - Chest x-ray with right basilar infiltrate concerning for PNA -To complete Levaquin 06/13. -No leukocytosis, afebrile, latest chest x-ray with improved aeration. - Pulmonary following, appreciate assistance. 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 Discharge Planning: DC to [facility], doing authorization from insurance, likely Monday. (6) Osteoarthritis of right knee Qualifiers: Osteoarthritis type: primary Qualified Code(s): M17.11 - Unilateral primary osteoarthritis, right knee
[2018-06-09] MEDS: levoFLOXacin 750 MG Tablet PO SCH (17:13)
[2018-06-09] MEDS: traZODone 50 MG Tablet PO PRN (23:42)
--- NOTE | 2018-06-10 08:13 | P.PNPL ---
Subjective Interval history: Patient is lying in bed in NAD. Afebrile. On room air oxygen when seen. Physical Exam Vital signs: Vital Signs 06/09/18 08:38 06/09/18 11:00 06/09/18 12:00 Temperature 97.7 F Pulse Rate 89 82 Respiratory Rate 14 18 Blood Pressure 126/57 L Pulse Oximetry 97 93 L 06/09/18 15:00 06/09/18 15:59 06/09/18 19:19 Temperature 97.8 F 97.5 F L Pulse Rate 88 97 H 91 H Respiratory Rate 14 18 18 Blood Pressure 138/71 117/60 Pulse Oximetry 92 L 95 06/10/18 00:00 06/10/18 00:03 06/10/18 00:52 Temperature 97.9 F Pulse Rate 80 63 Respiratory Rate 18 18 18 Blood Pressure 127/60 Pulse Oximetry 95 93 L 06/10/18 01:16 06/10/18 04:00 06/10/18 05:03 Temperature 97.2 F L Pulse Rate 67 67 Respiratory Rate 18 18 16 Blood Pressure 145/75 H Pulse Oximetry 95 Intake & Output 06/09/18 06/10/18 06/10/18 18:59 06:59 18:59 Intake Total 800 / 800 960 / 960 Output Total 1300 / 1300 1600 / 1600 Balance -500 / -500 -640 / -640 Weight 125.2 kg Intake: Oral 800 / 800 960 / 960 Output: Urine 1300 / 1300 1600 / 1600 Other: Date of Last Bowel Movement 06/08/18 06/08/18 - Constitutional no acute distress - Routine HEENT Exam Head: Present: normocephalic, atraumatic Eye: Present: EOMI, PERRL, normal accommodation, conjunctivae pink ENT: Present: mucous membranes moist - Routine Neck Exam Present: supple, full ROM, trachea midline - Routine Respiratory Exam Present: CTA bilaterally - Routine Cardiovascular Exam Present: RRR, S1, S2 - Routine Abdominal Exam Present: soft, normoactive bowel sounds - Routine Extremities Exam Present: edema, pulses intact Comments: Edema RLE s/p right knee replacement. - Routine Neurological Exam Present: alert, oriented X3, CN II-XII intact Assessment and Plan - Plan IMPRESSION: 1. Respiratory insufficiency. 2. Right basilar pneumonia. 3. COPD 4. Active tobacco use. 5. Status post right knee replacement on 06/04/2018. 6. History of osteoarthritis. 7. History of hepatitis C. 8. Peripheral vascular disease. Plan: Continue with oxygen and maintain saturations above 92%. Bronchodilators(DuoNeb, Symbicort), IS taper [id number] 40 mg IV every Q12 BiPAP p.r.n. for respiratory distress. CXR 06/08 showed improving aeration Abx( Levaquin) monitor for signs of infection( fever and WBC). strep pneumonia and legionella urinary antigen negative. 06/07: Blood cx: NGTD, sputum cx 06/07- normal resp dajuan Asses for home oxygen prior to discharge. Patient is counseled regarding smoking cessation. GI/DVT prophylaxis. On Eliquis 2.5 mg p.o. b.i.d. Continue treatment plan
[2018-06-10] MEDS: Lisinopril 10 MG Tablet PO SCH (09:09)
[2018-06-10] MEDS: Budesonide-Formoterol 160/4.5 MCG 6 GM Inhaler INH SCH ×2 (09:09→21:38)
[2018-06-10] MEDS: MethylPREDNISolone Sod Succinate Inj 40 MG/ML Vial IV.PUSH SCH ×2 (09:09→21:35)
[2018-06-10] MEDS: Senna/Docusate Sodium 8.6/50 MG Tablet PO SCH ×2 (09:10→21:38)
[2018-06-10] MEDS: Multivitamin/Minerals Therapeutic Tablet PO SCH ×2 (09:10→21:36)
--- NOTE | 2018-06-10 09:55 | P.PNOP ---
Subjective Interval history: Postop day #6 He is doing relatively well. He has minimal complaints related to his knee. He is anxious to go to [facility]. Physical therapy reports that the ambulation distance was 110 feet. The range of motion was 0 degrees of extension to 80 degrees of flexion. Physical Exam Vital signs: Vital Signs 06/09/18 11:00 06/09/18 12:00 06/09/18 15:00 Temperature 97.7 F Pulse Rate 89 82 88 Respiratory Rate 14 18 14 Blood Pressure 126/57 L Pulse Oximetry 93 L 06/09/18 15:59 06/09/18 19:19 06/10/18 00:00 Temperature 97.8 F 97.5 F L 97.9 F Pulse Rate 97 H 91 H 80 Respiratory Rate 18 18 18 Blood Pressure 138/71 117/60 127/60 Pulse Oximetry 92 L 95 95 06/10/18 00:03 06/10/18 00:52 06/10/18 01:16 Temperature Pulse Rate 63 Respiratory Rate 18 18 18 Blood Pressure Pulse Oximetry 93 L 06/10/18 04:00 06/10/18 05:03 06/10/18 07:00 Temperature 97.2 F L Pulse Rate 67 67 72 Respiratory Rate 18 16 12 Blood Pressure 145/75 H Pulse Oximetry 95 06/10/18 08:00 06/10/18 08:43 Temperature 97.4 F L Pulse Rate 59 L Respiratory Rate 17 Blood Pressure 132/69 Pulse Oximetry 98 97 Intake & Output 06/09/18 06/10/18 06/10/18 18:59 06:59 18:59 Intake Total 800 / 800 960 / 960 Output Total 1300 / 1300 1600 / 1600 Balance -500 / -500 -640 / -640 Weight 125.2 kg Intake: Oral 800 / 800 960 / 960 Output: Urine 1300 / 1300 1600 / 1600 Other: Date of Last Bowel Movement 06/08/18 06/08/18 06/08/18 He is resting comfortably, in the chair. He is moving the knee fairly well. His wound is clean and dry and healing well. There is no sign of infection. He has some diffuse swelling. There is a blister on the lateral aspect in the peripatellar area. Results - Labs CBC & Chem 7: 06/08/18 04:21 06/08/18 04:21 Microbiology 06/07/18 00:50 Blood - Peripheral Aerobic Blood Culture - Preliminary No growth in 2 days 06/07/18 00:50 Blood - Peripheral Anaerobic Blood Culture - Preliminary No growth in 2 days 06/07/18 01:07 Blood - Peripheral Aerobic Blood Culture - Preliminary No growth in 2 days 06/07/18 01:07 Blood - Peripheral Anaerobic Blood Culture - Preliminary No growth in 2 days 06/07/18 15:30 Sputum - Expectorated Sputum Gram Stain - Final 06/07/18 15:30 Sputum - Expectorated Sputum Sputum Culture - Final Heavy growth normal respiratory dajuan Assessment and Plan - Ortho Post Op Day # 6 - Problem List (1) Status post total right knee replacement using cement Code(s): Z96.651 - Presence of right artificial knee joint Status: Acute - Assessment and Plan Condition: Good. Orthopedically stable. Discharge plans: [facility] for inpatient rehabilitation, possibly tomorrow. Per Dr. Krishnan: Pt now has pneumonia. Being treated by medical with levaquin IV. NV intact to toes. Amblulating with walker but with difficulty. No calf tenderness. Plan pulmonary consult and continued PT before discharge when medically stable.
--- NOTE | 2018-06-10 14:29 | P.PN ---
Subjective Interval history: Follow-up visit for right knee arthroplasty, COPD and pneumonia. Patient is seen and examined sitting up in bed in no acute distress. He denies any further fevers, chills. States that his cough has improved, still requiring oxygen. Denies any nausea, vomiting, diarrhea. Plans are still for [place] discharge tomorrow. Physical Exam Vital signs: Vital Signs 06/09/18 15:00 06/09/18 15:59 06/09/18 19:19 Temperature 97.8 F 97.5 F L Pulse Rate 88 97 H 91 H Respiratory Rate 14 18 18 Blood Pressure 138/71 117/60 Pulse Oximetry 92 L 95 06/10/18 00:00 06/10/18 00:03 06/10/18 00:52 Temperature 97.9 F Pulse Rate 80 63 Respiratory Rate 18 18 18 Blood Pressure 127/60 Pulse Oximetry 95 93 L 06/10/18 01:16 06/10/18 04:00 06/10/18 05:03 Temperature 97.2 F L Pulse Rate 67 67 Respiratory Rate 18 18 16 Blood Pressure 145/75 H Pulse Oximetry 95 06/10/18 07:00 06/10/18 08:00 06/10/18 08:43 Temperature 97.4 F L Pulse Rate 72 59 L Respiratory Rate 12 17 Blood Pressure 132/69 Pulse Oximetry 98 97 06/10/18 12:00 Temperature 97.4 F L Pulse Rate 77 Respiratory Rate 18 Blood Pressure 150/70 H Pulse Oximetry 93 L Intake & Output 06/09/18 06/10/18 06/10/18 18:59 06:59 18:59 Intake Total 800 / 800 960 / 960 Output Total 1300 / 1300 1600 / 1600 Balance -500 / -500 -640 / -640 Weight 125.2 kg Intake: Oral 800 / 800 960 / 960 Output: Urine 1300 / 1300 1600 / 1600 Other: Date of Last Bowel Movement 06/08/18 06/08/18 06/08/18 Narrative: GENERAL: Well-developed, obese, male sitting up in no acute distress. SKIN: Warm and dry. HEAD: Atraumatic. Normocephalic. EYES: Pupils equal and round. No scleral icterus. No injection or drainage. ENT: No nasal bleeding or discharge. Mucous membranes pink and moist. NECK: Trachea midline. CARDIOVASCULAR: Regular rate and rhythm. RESPIRATORY: No accessory muscle use. No wheezing, rhonchi or crackles. GASTROINTESTINAL: Abdomen obese soft, non-tender, nondistended. +BS MUSCULOSKELETAL: Extremities without clubbing or cyanosis. Right knee surgical incision well approximated with trace edema. Unchanged erythema surrounding edges of distal and proximal dressing. Lower lateral bulla noted, slight erythema noted on lateral knee, outlined. + Pedal pulses, sensation, movement, capillary refill<3 seconds. NEUROLOGICAL: Awake, alert and oriented x3. No obvious cranial nerve deficits. Motor grossly within normal limits. Normal speech. PSYCHIATRIC: Appropriate mood and affect; insight and judgment normal. Results - Labs CBC & Chem 7: 06/08/18 04:21 06/08/18 04:21 Microbiology 06/07/18 00:50 Blood - Peripheral Aerobic Blood Culture - Preliminary No growth in 3 days 06/07/18 00:50 Blood - Peripheral Anaerobic Blood Culture - Preliminary No growth in 3 days 06/07/18 01:07 Blood - Peripheral Aerobic Blood Culture - Preliminary No growth in 3 days 06/07/18 01:07 Blood - Peripheral Anaerobic Blood Culture - Preliminary No growth in 3 days 06/07/18 15:30 Sputum - Expectorated Sputum Gram Stain - Final 06/07/18 15:30 Sputum - Expectorated Sputum Sputum Culture - Final Heavy growth normal respiratory dajuan Assessment and Plan - Assessment (1) COPD (chronic obstructive pulmonary disease) Code(s): J44.9 - Chronic obstructive pulmonary disease, unspecified Status: Acute (2) Asthma Code(s): J45.909 - Unspecified asthma, uncomplicated Status: Acute (3) Hypertension Code(s): I10 - Essential (primary) hypertension Status: Acute (4) Hyperlipidemia Code(s): E78.5 - Hyperlipidemia, unspecified Status: Acute (5) Status post total right knee replacement using cement Code(s): Z96.651 - Presence of right artificial knee joint Status: Acute (6) Osteoarthritis of right knee Code(s): M17.11 - Unilateral primary osteoarthritis, right knee Status: Chronic - Plan This is a 63-year-old male with past medical history of osteoarthritis , hypertension, COPD, asthma COPD, hyperlipidemia who was admitted for right total knee arthroplasty with Dr. Krishnan for osteoarthritic degeneration of the right knee. Osteoarthritic degeneration of the right knee Status post right knee arthroplasty today 06/04/[address] Krishnan History of ACL reconstruction and total left knee -Postop care for right knee arthroplasty -Pain pain management with as needed pain medication and bowel regimen -OrthO following -Continue Eliquis for DVT prophylaxis -Physical therapy/rehab per protocol -Slight erythema noted on the lateral edge as well as distal and proximal dressing. to follow tomorrow, erythema outlined 06/10. COPD Asthma Tobacco dependence -No wheezing noted today on exam -Continue Symbicort for COPD maintenance -Nasal cannula to keep sat greater than 90% -Nicotine patch -Pulmonary consulted, appreciate assistance. -Transition from Solu-Medrol to prednisone tomorrow morning -Monitor respiratory status Right LL PNA, healthcare associated -Leukocytosis resolved, T-max overnight 101.4 - Chest x-ray with right basilar infiltrate concerning for PNA -To complete Levaquin 06/13. -No leukocytosis, afebrile, latest chest x-ray with improved aeration. - Pulmonary following, appreciate assistance. -Afebrile respiratory status stable. 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 (6) Osteoarthritis of right knee Qualifiers: Osteoarthritis type: primary Qualified Code(s): M17.11 - Unilateral primary osteoarthritis, right knee
[2018-06-10] MEDS: levoFLOXacin 750 MG Tablet PO SCH (17:01)
[2018-06-10] MEDS: traZODone 50 MG Tablet PO PRN (23:32)
[2018-06-11] MEDS: Budesonide-Formoterol 160/4.5 MCG 6 GM Inhaler INH SCH ×2 (09:00→21:20)
[2018-06-11] MEDS: predniSONE 20 MG Tablet PO SCH (09:11)
[2018-06-11] MEDS: Senna/Docusate Sodium 8.6/50 MG Tablet PO SCH ×2 (09:11→21:20)
[2018-06-11] MEDS: Multivitamin/Minerals Therapeutic Tablet PO SCH ×2 (09:11→21:17)
[2018-06-11] MEDS: Lisinopril 10 MG Tablet PO SCH (09:11)
--- NOTE | 2018-06-11 11:24 | P.PNOP ---
Subjective Interval history: Pt comfortable at present without complaints. Physical Exam Vital signs: Vital Signs 06/10/18 12:00 06/10/18 15:00 06/10/18 16:00 Temperature 97.4 F L 97.7 F Pulse Rate 77 84 83 Respiratory Rate 18 14 16 Blood Pressure 150/70 H 155/75 H Pulse Oximetry 93 L 93 L 06/10/18 20:13 06/10/18 21:07 06/10/18 23:16 Temperature 98.0 F 98.0 F Pulse Rate 92 H 86 79 Respiratory Rate 19 14 18 Blood Pressure 150/73 H 154/74 H Pulse Oximetry 93 L 92 L 06/11/18 00:59 06/11/18 03:07 06/11/18 08:00 Temperature 97.3 F L 97.6 F Pulse Rate 79 66 73 Respiratory Rate 20 18 14 Blood Pressure 158/77 H 163/84 H Pulse Oximetry 95 93 L 96 06/11/18 10:13 06/11/18 10:29 Temperature Pulse Rate Respiratory Rate Blood Pressure Pulse Oximetry 96 97 Intake & Output 06/10/18 06/11/18 06/11/18 18:59 06:59 18:59 Intake Total 900 / 900 720 / 720 Output Total 2250 / 2250 2200 / 2200 Balance -1350 / -1350 -1480 / -1480 Weight 111.3 kg Intake: Oral 900 / 900 720 / 720 Output: Urine 2250 / 2250 2200 / 2200 Other: Date of Last Bowel Movement 06/08/18 06/10/18 06/10/18 # Bowel Movements 2 0 - Constitutional no acute distress Results - Labs CBC & Chem 7: 06/08/18 04:21 06/08/18 04:21 Microbiology 06/07/18 00:50 Blood - Peripheral Aerobic Blood Culture - Preliminary No growth in 4 days 06/07/18 00:50 Blood - Peripheral Anaerobic Blood Culture - Preliminary No growth in 4 days 06/07/18 01:07 Blood - Peripheral Aerobic Blood Culture - Preliminary No growth in 4 days 06/07/18 01:07 Blood - Peripheral Anaerobic Blood Culture - Preliminary No growth in 4 days Assessment and Plan - Problem List (1) Status post total right knee replacement using cement Code(s): Z96.651 - Presence of right artificial knee joint Status: Acute (2) Osteoarthritis of right knee Code(s): M17.11 - Unilateral primary osteoarthritis, right knee Status: Chronic Qualifiers: Osteoarthritis type: primary Qualified Code(s): M17.11 - Unilateral primary osteoarthritis, right knee - Assessment and Plan Condition: Good. Orthopedically stable.Dressing dry and intact. Ambulating well with walker. No calf tenderness. Discharge plans: [facility] for inpatient rehabilitation, possibly today.
--- NOTE | 2018-06-11 17:10 | P.PNIM ---
Subjective Interval history: Follow up status post right knee arthroplasty, RLL pneumonia, COPD Patient was seen shortly after ambulating down the hallway with assistance of PT. His oxygen saturation was noted to drop down to 86% on room air with exertion. Patient acknowledges a history of COPD and states he usually experiences moderate to severe dyspnea with mild exertion even outside of the hospital setting. After sitting down and resting his oxygen saturation on room air improves into the mid 90's. Patient is currently using Symbicort, Spiriva and an Albuterol rescue inhaler at home. He denies cough, chest pain, fevers or chills. 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 Discussed family support with patient and he states he has some help but is extremely worried about his son. No fever or chills overnight. Physical Exam Vital signs: Last Vital Signs Temp 97.8 F 06/11/18 12:00 Pulse 82 06/11/18 12:41 Resp 18 06/11/18 12:41 BP 153/99 H 06/11/18 12:00 Pulse Ox 98 06/11/18 12:41 Intake & Output 06/09/18 06/10/18 06/11/18 06/12/18 06:59 06:59 06:59 06:59 Intake Total 2350 / 2350 1760 / 1760 1620 / 1620 Output Total 2725 / 2725 2900 / 2900 4450 / 4450 Balance -375 / -375 -1140 / -1140 -2830 / -2830 Weight 114.2 kg 125.2 kg 111.3 kg Narrative: GENERAL: Well-developed, obese, male sitting up in no acute distress. SKIN: Warm and dry. HEAD: Atraumatic. Normocephalic. EYES: Pupils equal and round. No scleral icterus. No injection or drainage. ENT: No nasal bleeding or discharge. Mucous membranes pink and moist. NECK: Trachea midline. CARDIOVASCULAR: Regular rate and rhythm. RESPIRATORY: No accessory muscle use. No wheezing, rhonchi or crackles. GASTROINTESTINAL: Abdomen obese soft, non-tender, nondistended. +BS MUSCULOSKELETAL: Extremities without clubbing or cyanosis. Right knee surgical incision well approximated with trace edema. Unchanged erythema surrounding edges of distal and proximal dressing. Lower lateral bulla noted, slight erythema noted on lateral knee, outlined. + Pedal pulses, sensation, movement, capillary refill<3 seconds. NEUROLOGICAL: Awake, alert and oriented x3. No obvious cranial nerve deficits. Motor grossly within normal limits. Normal speech. PSYCHIATRIC: Appropriate mood and affect; insight and judgment normal. Results Labs CBC & Chem 7: 06/08/18 04:21 06/08/18 04:21 Labs: Microbiology 06/07/18 00:50 Blood - Peripheral Aerobic Blood Culture - Preliminary No growth in 4 days 06/07/18 00:50 Blood - Peripheral Anaerobic Blood Culture - Preliminary No growth in 4 days 06/07/18 01:07 Blood - Peripheral Aerobic Blood Culture - Preliminary No growth in 4 days 06/07/18 01:07 Blood - Peripheral Anaerobic Blood Culture - Preliminary No growth in 4 days Assessment and Plan Plan This is a 63-year-old male with past medical history of osteoarthritis , hypertension, COPD, asthma COPD, hyperlipidemia who was admitted for right total knee arthroplasty with Dr. Krishnan for osteoarthritic degeneration of the right knee. Osteoarthritic degeneration of the right knee - evaluated 06/11/18 -Status post right knee arthroplasty 06/04/[address] Krishnan -History of ACL reconstruction and total left knee -Postop care for right knee arthroplasty -Pain pain management with as needed pain medication and bowel regimen -Ortho following -Continue Eliquis for DVT prophylaxis -Physical therapy/rehab per protocol -Slight erythema noted on the lateral edge as well as distal and proximal dressing. evaluated 06/11/18. Patient clear for d/c to [facility]. COPD - evaluated 06/11/18 -continue home inhalers -walk test, CM consult for home O2 -pt advised on smoking cessation Asthma Tobacco dependence -No wheezing noted today on exam -Continue Symbicort for COPD maintenance -Nasal cannula to keep sat greater than 90% -Nicotine patch -Pulmonary consulted, appreciate assistance. -Transition from Solu-Medrol to prednisone tomorrow morning -Monitor respiratory status Right LL PNA, healthcare associated - evaluated 06/11/18 -Leukocytosis resolved, afebrile overnight -Chest x-ray with right basilar infiltrate concerning for PNA -To complete Levaquin 06/13. -No leukocytosis, afebrile, latest chest x-ray with improved aeration. -Pulmonary following, appreciate assistance. -Afebrile respiratory status stable. Hypertension, chronic - evaluated 06/11/18 -monitor pain level -continue current B/P meds -monitor vital signs per unit protocol Hyperlipidemia, history of Insomnia -Trial of PRN Trazodone DVT prophylaxis: Continue on Eliquis Discussed Condition With: patient, RN Progress Note: Quality VTE Deep Vein Thrombosis/Pulmonary Embolism Present on Admission: No
[2018-06-11] MEDS: levoFLOXacin 750 MG Tablet PO SCH (18:08)
--- NOTE | 2018-06-11 19:21 | P.PNPL ---
Subjective Interval history: 63 YOWM with COPD,Nicotine use, Pn Had TKR Breathing better On 2LNC No cough or sp Physical Exam Vital signs: Vital Signs 06/10/18 20:13 06/10/18 21:07 06/10/18 23:16 Temperature 98.0 F 98.0 F Pulse Rate 92 H 86 79 Respiratory Rate 19 14 18 Blood Pressure 150/73 H 154/74 H Pulse Oximetry 93 L 92 L 06/11/18 00:59 06/11/18 03:07 06/11/18 08:00 Temperature 97.3 F L 97.6 F Pulse Rate 79 66 73 Respiratory Rate 20 18 14 Blood Pressure 158/77 H 163/84 H Pulse Oximetry 95 93 L 96 06/11/18 10:13 06/11/18 10:29 06/11/18 12:00 Temperature 97.8 F Pulse Rate 82 Respiratory Rate 16 Blood Pressure 153/99 H Pulse Oximetry 96 97 90 L 06/11/18 12:41 Temperature Pulse Rate 82 Respiratory Rate 18 Blood Pressure Pulse Oximetry 98 Intake & Output 06/11/18 06/11/18 06/12/18 06:59 18:59 06:59 Intake Total 720 / 720 480 / 480 Output Total 2200 / 2200 Balance -1480 / -1480 480 / 480 Weight 111.3 kg Intake: Oral 720 / 720 480 / 480 Output: Urine 2200 / 2200 Other: # Voids 1,200 Date of Last Bowel Movement 06/10/18 06/10/18 # Bowel Movements 0 0 GENERAL: WBWN Wm, NAD SKIN: Warm and dry. HEAD: Normocephalic. EYES: No scleral icterus. No injection or drainage. NECK: Supple, trachea midline. No JVD or lymphadenopathy. CARDIOVASCULAR: Regular rate and rhythm without murmurs, gallops, or rubs. RESPIRATORY: Breath sounds equal bilaterally. No accessory muscle use. GASTROINTESTINAL: Abdomen soft, non-tender, nondistended. MUSCULOSKELETAL: No cyanosis, or edema. BACK: Nontender without obvious deformity. No CVA tenderness. Assessment and Plan - Plan IMPRESSION: COPD Pneumonia S/P TKR Nicotine use PAD H/o Hep C PLAN: Aerosol nebs Symbicort 2 puffs bid Cont Abx Eliquis 2.5 mg bid Smoking cessation.
[2018-06-12] MEDS: traZODone 50 MG Tablet PO PRN (00:25)
--- NOTE | 2018-06-12 08:26 | P.PNPL ---
Subjective Interval history: 63 YOWM with COPD,Nicotine use, Pn Had TKR Breathing better On 02 2LNC No cough or sp Feels anxious, has some situation with his son at home Physical Exam Vital signs: Vital Signs 06/11/18 10:13 06/11/18 10:29 06/11/18 12:00 Temperature 97.8 F Pulse Rate 82 Respiratory Rate 16 Blood Pressure 153/99 H Pulse Oximetry 96 97 90 L 06/11/18 12:41 06/11/18 19:20 06/11/18 21:04 Temperature 97.3 F L Pulse Rate 82 81 Respiratory Rate 18 20 Blood Pressure 144/78 H Pulse Oximetry 98 95 96 06/12/18 00:20 06/12/18 04:25 Temperature 98.1 F 97.7 F Pulse Rate 81 75 Respiratory Rate 19 19 Blood Pressure 147/78 H 139/78 Pulse Oximetry 92 L 92 L Intake & Output 06/11/18 06/12/18 06/12/18 18:59 06:59 18:59 Intake Total 480 / 480 600 / 600 Balance 480 / 480 600 / 600 Weight 111.5 kg Intake: Oral 480 / 480 600 / 600 Other: # Voids 1,200 2 Date of Last Bowel Movement 06/10/18 06/10/18 # Bowel Movements 0 0 GENERAL: WBWn NAD SKIN: Warm and dry. HEAD: Normocephalic. EYES: No scleral icterus. No injection or drainage. NECK: Supple, trachea midline. No JVD or lymphadenopathy. CARDIOVASCULAR: Regular rate and rhythm without murmurs, gallops, or rubs. RESPIRATORY: Breath sounds equal bilaterally. No accessory muscle use. GASTROINTESTINAL: Abdomen soft, non-tender, nondistended. MUSCULOSKELETAL: No cyanosis, or edema. BACK: Nontender without obvious deformity. No CVA tenderness. Assessment and Plan - Plan IMPRESSION: COPD Pneumonia S/P TKR Nicotine use PAD H/o Hep C PLAN: Aerosol nebs Symbicort 2 puffs bid Cont Abx Eliquis 2.5 mg bid Smoking cessation. Evaluate for home
[2018-06-12] MEDS: predniSONE 20 MG Tablet PO SCH (09:19)
[2018-06-12] MEDS: Lisinopril 10 MG Tablet PO SCH (09:19)
[2018-06-12] MEDS: Multivitamin/Minerals Therapeutic Tablet PO SCH (09:19)
[2018-06-12 09:21] VITALS: BP 144/75; PULSE 77; RESP 16; TEMP 97.8; O2SAT 95
[2018-06-12] MEDS: Budesonide-Formoterol 160/4.5 MCG 6 GM Inhaler INH SCH (09:21)
[2018-06-12] MEDS: Senna/Docusate Sodium 8.6/50 MG Tablet PO SCH (09:21)
--- NOTE | 2018-06-12 10:38 | P.PNOP ---
Subjective Interval history: Patient comfortable with no complaints. Patient wants to go home today. Physical Exam Vital signs: Vital Signs 06/11/18 12:00 06/11/18 12:41 06/11/18 19:20 Temperature 97.8 F 97.3 F L Pulse Rate 82 82 81 Respiratory Rate 16 18 20 Blood Pressure 153/99 H 144/78 H Pulse Oximetry 90 L 98 95 06/11/18 21:04 06/12/18 00:20 06/12/18 04:25 Temperature 98.1 F 97.7 F Pulse Rate 81 75 Respiratory Rate 19 19 Blood Pressure 147/78 H 139/78 Pulse Oximetry 96 92 L 92 L 06/12/18 08:00 Temperature 97.8 F Pulse Rate 77 Respiratory Rate 16 Blood Pressure 144/75 H Pulse Oximetry 95 Intake & Output 06/11/18 06/12/18 06/12/18 18:59 06:59 18:59 Intake Total 480 / 480 600 / 600 Balance 480 / 480 600 / 600 Weight 111.5 kg Intake: Oral 480 / 480 600 / 600 Other: # Voids 1,200 2 Date of Last Bowel Movement 06/10/18 06/10/18 # Bowel Movements 0 0 - Constitutional no acute distress Results - Labs CBC & Chem 7: 06/08/18 04:21 06/08/18 04:21 Microbiology 06/07/18 00:50 Blood - Peripheral Aerobic Blood Culture - Preliminary No growth in 4 days 06/07/18 00:50 Blood - Peripheral Anaerobic Blood Culture - Preliminary No growth in 4 days 06/07/18 01:07 Blood - Peripheral Aerobic Blood Culture - Preliminary No growth in 4 days 06/07/18 01:07 Blood - Peripheral Anaerobic Blood Culture - Preliminary No growth in 4 days Assessment and Plan - Problem List (1) Status post total right knee replacement using cement Code(s): Z96.651 - Presence of right artificial knee joint Status: Acute (2) Osteoarthritis of right knee Code(s): M17.11 - Unilateral primary osteoarthritis, right knee Status: Chronic Qualifiers: Osteoarthritis type: primary Qualified Code(s): M17.11 - Unilateral primary osteoarthritis, right knee - Assessment and Plan Condition: Good. Orthopedically stable.Dressing dry and intact. Ambulating well with walker. No calf tenderness. Discharge plans: [facility] for inpatient rehabilitation, possibly today. - Attending Attestation Attending Attestation: Patient ambulating well with his walker. Dressing is dry and intact. Blister is still present lateral to the incision. He is neurovascularly intact to his toes. Plan is for the patient to be discharged after he learns how to do stairs on oxygen. Appointment in 1 week time for recheck. Home with home health care.
--- NOTE | 2018-06-12 11:32 | MD ---
cc: Carol Krishnan MD DATE OF DISCHARGE: DATE OF ADMISSION AND SURGERY: 06/04/2018. ADMITTING DIAGNOSIS: Osteoarthritic degeneration, right knee. DISCHARGE DIAGNOSIS: Osteoarthritic degeneration, right knee. DISCHARGE SUMMARY IS FOLLOWS: This pleasant 63-year-old male who was admitted on 06/04/2018 with severe osteoarthritic degeneration, right knee, for which he underwent a right total knee arthroplasty. He received a course of prophylactic IV antibiotics and was placed on anticoagulation therapy within 23 hours of surgery. He continued to improve slowly; had COPD and developed pneumonia for which he had medical management by the medical service and also underwent pulmonary consult and continued to improve slowly and was discharged to home with home health care and physical therapy on 06/12/2018 in good condition, tolerating food and fluid well. P.o. pain medication and discharged on oxygen per his medical doctor and publicity person and followup appointment in 1 week time for recheck. The patient discharged on blood thinners and p.o. pain medications. Carol Krishnan MD JRR/ollie , 10:45 AM , 10:52 AM
--- NOTE | 2018-06-12 14:11 | P.DCO ---
Diagnosis (1) Status post total right knee replacement using cement: Status: Acute (2) Osteoarthritis of right knee: Status: Chronic (3) COPD (chronic obstructive pulmonary disease): Status: Acute (4) Pneumonia: Status: Acute Case Management Consult Case Management Consult-Home Health: Yes I have seen patient Randy Corona on 06/12/18. My clinical findings support the need for the requested home health care services because: patient has limited mobility due to recent total right knee replacement. He has a history of COPD which was complicated by pneumonia during his hospitalization. His oxygen saturations dropped to below 88% with exertion and patient requires supplemental home O2 via nasal cannula @ 2LPM PRN with activity and/or exertion. I certify that my clinical findings support that this patient is homebound because: _ (1) Osteoarthritis of right knee Qualifiers: Osteoarthritis type: primary Qualified Code(s): M17.11 - Unilateral primary osteoarthritis, right knee (2) COPD (chronic obstructive pulmonary disease) Qualifiers: COPD type: Chronic bronchitis type: Emphysema type:
--- NOTE | 2018-06-12 14:13 | P.DCO ---
Diagnosis (1) Status post total right knee replacement using cement: Status: Acute (2) Osteoarthritis of right knee: Status: Chronic (3) COPD (chronic obstructive pulmonary disease): Status: Acute (4) Pneumonia: Status: Acute Case Management Consult Case Management Consult-Home Health: Yes I have seen patient Randy Corona on 06/12/18. My clinical findings support the need for the requested home health care services because: patient with history of tobacco use, COPD which was complicated by pneumonia during his hospitalization. His oxygen saturation dropped to below 88% with activity/ exertion. He will require home O2 PRN via nasal cannula @ 2LPM for activity/ exertion at home. I certify that my clinical findings support that this patient is homebound because: _ (1) Osteoarthritis of right knee Qualifiers: Osteoarthritis type: primary Qualified Code(s): M17.11 - Unilateral primary osteoarthritis, right knee (2) COPD (chronic obstructive pulmonary disease) Qualifiers: COPD type: Chronic bronchitis type: Emphysema type:
--- NOTE | 2018-06-12 17:35 | P.PNIM ---
Subjective Interval history: Follow up status post right knee arthroplasty, RLL pneumonia, COPD Patient continues to experience moderate dyspnea with exertion. Walk test completed and home O2 order placed. CM consulted for assistance. Patient states this is his baseline. PT evaluated patient going up stairs with oxygen and stated that he did well. Discussed with Ortho and patient clear to be discharged home with HH and PT eval/treat. Patient denies chest pain, shortness of breath, lower extremity pain, nausea or vomiting. Tolerating diet. Physical Exam Vital signs: Last Vital Signs Temp 97.8 F 06/12/18 08:00 Pulse 77 06/12/18 08:00 Resp 16 06/12/18 08:00 BP 144/75 H 06/12/18 08:00 Pulse Ox 95 06/12/18 08:00 Intake & Output 06/10/18 06/11/18 06/12/18 06/13/18 06:59 06:59 06:59 06:59 Intake Total 1760 / 1760 1620 / 1620 1080 / 1080 Output Total 2900 / 2900 4450 / 4450 Balance -1140 / -1140 -2830 / -2830 1080 / 1080 Weight 125.2 kg 111.3 kg 111.5 kg Narrative: GENERAL: Well-developed, obese, male sitting up in no acute distress. SKIN: Warm and dry. HEAD: Atraumatic. Normocephalic. EYES: Pupils equal and round. No scleral icterus. No injection or drainage. ENT: No nasal bleeding or discharge. Mucous membranes pink and moist. NECK: Trachea midline. CARDIOVASCULAR: Regular rate and rhythm. RESPIRATORY: No accessory muscle use. No wheezing, rhonchi or crackles. GASTROINTESTINAL: Abdomen obese soft, non-tender, nondistended. +BS MUSCULOSKELETAL: Extremities without clubbing or cyanosis. Right knee surgical incision well approximated with trace edema. Unchanged erythema surrounding edges of distal and proximal dressing. Lower lateral bulla noted, slight erythema noted on lateral knee, outlined. + Pedal pulses, sensation, movement, capillary refill<3 seconds. NEUROLOGICAL: Awake, alert and oriented x3. No obvious cranial nerve deficits. Motor grossly within normal limits. Normal speech. PSYCHIATRIC: Appropriate mood and affect; insight and judgment normal. Results Labs CBC & Chem 7: 06/08/18 04:21 06/08/18 04:21 Labs: Microbiology 06/07/18 00:50 Blood - Peripheral Aerobic Blood Culture - Final No growth in 5 days 06/07/18 00:50 Blood - Peripheral Anaerobic Blood Culture - Final No growth in 5 days 06/07/18 01:07 Blood - Peripheral Aerobic Blood Culture - Final No growth in 5 days 06/07/18 01:07 Blood - Peripheral Anaerobic Blood Culture - Final No growth in 5 days Assessment and Plan (1) Status post total right knee replacement using cement: Code(s): Z96.651 - Presence of right artificial knee joint Status: Acute (2) Osteoarthritis of right knee: Code(s): M17.11 - Unilateral primary osteoarthritis, right knee Status: Chronic (3) COPD (chronic obstructive pulmonary disease): Code(s): J44.9 - Chronic obstructive pulmonary disease, unspecified Status: Acute (4) Pneumonia: Code(s): J18.9 - Pneumonia, unspecified organism Status: Acute Plan This is a 63-year-old male with past medical history of osteoarthritis , hypertension, COPD, asthma COPD, hyperlipidemia who was admitted for right total knee arthroplasty with Dr. Krishnan for osteoarthritic degeneration of the right knee. Osteoarthritic degeneration of the right knee - evaluated 06/12/18 -Status post right knee arthroplasty 06/04/[address] Krishnan -History of ACL reconstruction and total left knee -Postop care for right knee arthroplasty -Pain management with as needed pain medication and bowel regimen -Ortho following -Continue Eliquis for DVT prophylaxis -Physical therapy/rehab per protocol -Slight erythema noted on the lateral edge as well as distal and proximal dressing. evaluated 06/11/18. Patient clear for d/c. COPD - evaluated 06/12/18 -continue home inhalers -walk test completed, CM consulted for home O2 -pt advised on smoking cessation Asthma Tobacco dependence -No wheezing noted today on exam -Continue Symbicort for COPD maintenance -Nasal cannula to keep sat greater than 90% -Nicotine patch -Pulmonary consulted, appreciate assistance. -Transition from Solu-Medrol to prednisone tomorrow morning -Monitor respiratory status Right LL PNA, healthcare associated - evaluated 06/12/18 -Leukocytosis resolved, afebrile overnight -Chest x-ray with right basilar infiltrate concerning for PNA -To complete Levaquin 06/13. -No leukocytosis, afebrile, latest chest x-ray with improved aeration. -Pulmonary following, appreciate assistance. -Afebrile respiratory status stable. Hypertension, chronic - evaluated 06/12/18 -monitor pain level -continue current B/P meds -monitor vital signs per unit protocol Hyperlipidemia, history of Insomnia -Trial of PRN Trazodone DVT prophylaxis: Continue on Eliquis Progress Note: Quality VTE Deep Vein Thrombosis/Pulmonary Embolism Present on Admission: No _ (1) Osteoarthritis of right knee Qualifiers: Osteoarthritis type: primary Qualified Code(s): M17.11 - Unilateral primary osteoarthritis, right knee (2) COPD (chronic obstructive pulmonary disease) Qualifiers: COPD type: Chronic bronchitis type: Emphysema type:
== END 2018-06-12 14:15 | disposition home health service (06) ==
LOC: HSDI → INTOOBSV 07:28 → EDSTATUS 10:30 → N06 18:37
PROVIDERS: ADMIT Surgery; ATTEND Surgery
DX: Z80.3 Family history of malignant neoplasm of breast; J44.0 Chronic obstructive pulmonary disease with (acute) lower respiratory infection; K59.00 Constipation, unspecified; F32.9 Major depressive disorder, single episode, unspecified; Z86.14 Personal history of Methicillin resistant Staphylococcus aureus infection; B19.20 Unspecified viral hepatitis C without hepatic coma; I73.9 Peripheral vascular disease, unspecified; E66.9 Obesity, unspecified; Z79.51 Long term (current) use of inhaled steroids; G47.00 Insomnia, unspecified; Z96.652 Presence of left artificial knee joint; Y95 Nosocomial condition; I10 Essential (primary) hypertension; M17.11 Unilateral primary osteoarthritis, right knee; Z88.0 Allergy status to penicillin; F17.210 Nicotine dependence, cigarettes, uncomplicated; R06.89 Other abnormalities of breathing; Z79.899 Other long term (current) drug therapy; J18.9 Pneumonia, unspecified organism; Z79.01 Long term (current) use of anticoagulants; Z68.36 Body mass index [BMI] 36.0-36.9, adult; E78.5 Hyperlipidemia, unspecified